=== PATIENT | male | born 1955 | race Two or more races ===

== ENCOUNTER → 2022-05-03 | Outpatient (CLI) | payer OTHER | END | disposition home or self-care (01) | LOC: LAB 07:59 | PROVIDERS: ATTEND Internal Medicine | DX: I10 Essential (primary) hypertension (principal) | CPT/HCPCS: 82270 ==

== ENCOUNTER → 2023-03-09 | Outpatient (CLI) | payer OTHER ==
[2023-03-09 07:04] LABS: Basophils # (auto) 0 10 ^3/uL (0-0.2); Basophils % (auto) 0.5 % (0.0-2.0); Eosinophils # (auto) 0.1 10 ^3/uL (0-0.8); Eosinophils % (auto) 1.1 % (0.0-7.0); Hematocrit 41.4 % (41.0-53.0); Hemoglobin 14.2 g/dL (13.5-17.5); Lymphocytes # (auto) 1.5 10 ^3/uL (0.4-5.4); Lymphocytes % (auto) 21.4 % (10.0-50.0); Mean Corpuscular Hemoglobin 31.8 pg (28.0-32.0); Mean Corpuscular Hgb Conc. 34.4 g/dL (32.0-36.0); Mean Corpuscular Volume 92.4 fL (80.0-100.0); Monocytes # (auto) 0.5 10 ^3/uL (0-1.3); Monocytes % (auto) 7.4 % (0.0-12.0); Neutrophils # (auto) 4.8 10 ^3/uL (1.6-8.6); Neutrophils % (auto) 69.6 % (37.0-80.0); Nucleated Red Blood Cells % 0.1 %; Red Blood Cells 4.48 10^6/uL (4.5-5.90); White Blood Cell 6.9 10^3/uL (4.4-10.8)
[2023-03-09 07:39] LABS: Albumin 3.6 g/dL (3.4-5.0); Calcium 8.7 mg/dL (8.5-10.1); Potassium 4.7 mmol/L (3.5-5.1)
[2023-03-09 07:44] LABS: BUN/Creatinine Ratio 20.2 (10.0-20.0); Bilirubin, Total 0.8 mg/dL (0.2-1.0); Total Protein 6.8 g/dL (6.4-8.2)
== END | disposition home or self-care (01) ==
LOC: LAB 06:22
PROVIDERS: ATTEND Internal Medicine
DX: N40.0 Benign prostatic hyperplasia without lower urinary tract symptoms (principal); E78.5 Hyperlipidemia, unspecified
CPT/HCPCS: 36415; 80053; 80061; 84153; 84443; 85025

== ENCOUNTER → 2023-05-31 | Outpatient (CLI) | payer OTHER ==
[2023-05-31 11:49] LABS: Urine Bacteria NONE SEEN /hpf (None Seen); Urine Blood Negative /uL (Negative); Urine Clarity Clear (Clear); Urine Color Yellow (Yellow); Urine Protein, UAD Negative (Negative); Urine Urobilinogen Normal (Negative); Urine WBC <1 /hpf (0 - 3); Urine pH 6.5 (5.0-8.0)
== END | disposition home or self-care (01) ==
LOC: LAB 10:50
PROVIDERS: ATTEND Internal Medicine
DX: N18.2 Chronic kidney disease, stage 2 (mild) (principal); E78.5 Hyperlipidemia, unspecified
CPT/HCPCS: 36415; 81001; 83036

== ENCOUNTER 2023-08-10 07:07 | Inpatient (IN) | payer OTHER ==
[2023-08-05 09:41] LABS: Urine WBC None Seen /hpf (0 - 3)
[2023-08-05 09:56] LABS: Basophils # (auto) 0 10 ^3/uL (0-0.2); Basophils % (auto) 0.6 % (0.0-2.0); Eosinophils # (auto) 0.1 10 ^3/uL (0-0.8); Eosinophils % (auto) 2.1 % (0.0-7.0); Hematocrit 45.2 % (41.0-53.0); Hemoglobin 15.1 g/dL (13.5-17.5); Lymphocytes # (auto) 1.8 10 ^3/uL (0.4-5.4); Lymphocytes % (auto) 27.3 % (10.0-50.0); Mean Corpuscular Hemoglobin 30.9 pg (28.0-32.0); Mean Corpuscular Hgb Conc. 33.4 g/dL (32.0-36.0); Mean Corpuscular Volume 92.6 fL (80.0-100.0); Monocytes # (auto) 0.7 10 ^3/uL (0-1.3); Monocytes % (auto) 9.7 % (0.0-12.0); Neutrophils % (auto) 60.3 % (37.0-80.0); Nucleated Red Blood Cells % 0.1 %; Red Blood Cells 4.88 10^6/uL (4.5-5.90); Red Cell Distribution Width 13.3 % (11.8-14.3); White Blood Cell 6.7 10^3/uL (4.4-10.8)
[2023-08-05 10:10] LABS: Urine Bacteria NONE SEEN /hpf (None Seen); Urine Blood Negative /uL (Negative); Urine Clarity Clear (Clear); Urine Color Colorless (Yellow); Urine Protein, UAD Negative (Negative); Urine Specific Gravity 1.007 (1.001-1.035); Urine Urobilinogen Normal (Negative); Urine pH 6.5 (5.0-8.0)
[2023-08-05 10:12] LABS: INR 1.01 (0.9-1.15); Partial Thromboplastin Time 25.4 SEC (24.5-34.5); Prothrombin Time 10.6 sec (9.3-11.8)
[2023-08-05 10:52] LABS: Alanine Aminotransferase 42 U/L (7-40); Albumin 4.4 g/dL (3.2-4.8); Alkaline Phosphatase 98 U/L (46-116); Anion Gap 6 (5-15); Aspartate Aminotransferase 29 U/L (13-40); BUN/Creatinine Ratio 12.6 (10.0-20.0); Bilirubin, Total 0.8 mg/dL (0.2-1.0); Blood Urea Nitrogen 14 mg/dL (9-23); Calcium 9.6 mg/dL (8.5-10.1); Carbon Dioxide 30 mmol/L (20-30); Chloride 104 mmol/L (98-107); Glucose 102 mg/dL (74-106); Potassium 4.5 mmol/L (3.5-5.1); Sodium 140 mmol/L (136-145); Total Protein 7.1 g/dL (5.7-8.2)
[~2023-08-10] VITALS: Ht 177.8 cm; Wt 94.9 kg
[2023-08-10] VITALS (7 sets, daily range): BP systolic 128–140; BP diastolic 57–72; PULSE 48–83; RESP 11–21; TEMP 97.9–98.4; O2SAT 95–97
[~2023-08-10 07:07] MED LIST: MELO-335 PO
[2023-08-10] MEDS ORDERED: ceFAZolin 1GM/50ML 100 ML IV ONE (07:41)
[2023-08-10] MEDS ORDERED: LIDOCAINE W/ EPINEPHRINE 2% INJ 20ML VIAL ONE (08:13)
[2023-08-10] MEDS ORDERED: BUPIVACAINE HCL 50 ML ONE (08:13)
[2023-08-10] MEDS ORDERED: METOCLOPRAMIDE HCL 5MG/ml INJ 2ml VIAL IV PRN (08:15)
[2023-08-10] MEDS ORDERED: ONDANSETRON HCL 4 MG/2 ML VIAL IV PRN ×2 (08:15→09:45)
[2023-08-10] MEDS ORDERED: HYDROmorphone HCL 2 MG/ML VL/or syr IV PRN ×3 (08:15→11:00)
[2023-08-10] MEDS ORDERED: MEPERIDINE HCL (25 MG/ML) 1ML VIAL IV PRN (08:15)
[2023-08-10] MEDS ORDERED: SUCCINYLCHOLINE CHLORIDE 20 MG/ML 10ML VIAL IV ONE (08:18)
[2023-08-10] MEDS ORDERED: fentaNYL CITRATE 100 MCG/2 ML VL ONE (08:21)
[2023-08-10] MEDS ORDERED: ROCURONIUM 10MG/ML 10ML VIAL IV ONE (08:40)
[2023-08-10] MEDS ORDERED: PROPOFOL 10 MG/ML 20 ML IV ONE (08:40)
[2023-08-10] MEDS ORDERED: ONDANSETRON HCL 4 MG/2 ML VIAL ONE (08:42)
[2023-08-10] MEDS ORDERED: DexAMETHasone SOD PHOS 10MG/1ML VIAL INJ ONE (08:42)
[2023-08-10] MEDS ORDERED: SUGAMMADEX 200mg/2ml Vial (100MG/ML) IV ONE (09:27)
[2023-08-10] MEDS ORDERED: MEPERIDINE HCL (25 MG/ML) 1ML VIAL ONE (09:28)
[2023-08-10] MEDS: PANTOPRAZOLE 40 MG/10 ML VIAL INJ IV SCH (10:50)
[2023-08-10] MEDS: D5W/SOD CHL 0.45%/KCL 20MEQ 1,000 ML IV SCH ×2 (11:40→18:00)
[2023-08-10] MEDS: ceFAZolin 1GM/50ML 50 ML IV SCH ×2 (14:18→22:18)
[2023-08-10] MEDS: metroNIDAZOLE 500MG/100ML 100 ML IV SCH ×2 (14:57→22:18)
[2023-08-11] MEDS: D5W/SOD CHL 0.45%/KCL 20MEQ 1,000 ML IV SCH ×2 (02:25→11:38)
[2023-08-11 05:00] VITALS: BP 123/62; PULSE 70; RESP 20; TEMP 98.7; O2SAT 98
[2023-08-11] MEDS: metroNIDAZOLE 500MG/100ML 100 ML IV SCH ×2 (05:16→14:00)
[2023-08-11] MEDS: ceFAZolin 1GM/50ML 50 ML IV SCH ×2 (05:16→12:48)
[2023-08-11 06:28] LABS: Anion Gap 6 (5-15); Carbon Dioxide 29 mmol/L (20-30); Chloride 104 mmol/L (98-107); Sodium 139 mmol/L (136-145)
[2023-08-11 06:29] LABS: Calcium 9.1 mg/dL (8.7-10.4)
[2023-08-11 06:34] LABS: BUN/Creatinine Ratio 10.2 (10.0-20.0); Blood Urea Nitrogen 11 mg/dL (9-23); Glucose 109 mg/dL (74-106)
[2023-08-11 06:40] LABS: Basophils # (auto) 0 10 ^3/uL (0-0.2); Basophils % (auto) 0.1 % (0.0-2.0); Eosinophils # (auto) 0 10 ^3/uL (0-0.8); Hematocrit 40.8 % (41.0-53.0); Hemoglobin 13.7 g/dL (13.5-17.5); Lymphocytes # (auto) 1.8 10 ^3/uL (0.4-5.4); Lymphocytes % (auto) 11.8 % (10.0-50.0); Mean Corpuscular Hgb Conc. 33.5 g/dL (32.0-36.0); Mean Corpuscular Volume 92.3 fL (80.0-100.0); Monocytes # (auto) 1.4 10 ^3/uL (0-1.3); Monocytes % (auto) 9.6 % (0.0-12.0); Neutrophils # (auto) 11.7 10 ^3/uL (1.6-8.6); Neutrophils % (auto) 78.5 % (37.0-80.0); Nucleated Red Blood Cells % 0.1 %; Red Blood Cells 4.42 10^6/uL (4.5-5.90); Red Cell Distribution Width 13.7 % (11.8-14.3); White Blood Cell 14.9 10^3/uL (4.4-10.8)
[2023-08-11 08:00] VITALS: BP 123/62; PULSE 65; PULSE 70; RESP 18; RESP 20; TEMP 98.7; O2SAT 98
[2023-08-11 09:00] VITALS: BP 133/60; PULSE 55; RESP 19; TEMP 97.9; O2SAT 99
[2023-08-11] MEDS: PANTOPRAZOLE 40 MG/10 ML VIAL INJ IV SCH (11:38)
[2023-08-11 13:00] VITALS: BP 126/64; PULSE 61; RESP 18; TEMP 97.3; O2SAT 100
[2023-08-11] MEDS ORDERED: CEPH500T PO (13:02)
[2023-08-11] MEDS ORDERED: LACT10SO3 PO (13:02)
[2023-08-11] MEDS ORDERED: TRAM50TA2 PO (13:02)
[2023-08-11 14:34] VITALS: BP 123/62; PULSE 70; RESP 18; TEMP 36.3; O2SAT 98
== END 2023-08-11 16:00 | disposition home or self-care (01) | DRG 352 ==
LOC: SUR 07:07 → OVERFLOW 10:06 → WEST WING 11:42
PROVIDERS: ADMIT Internal Medicine; ATTEND Internal Medicine
PROC: 0YQ50ZZ Repair Right Inguinal Region, Open Approach (ICD-10-PCS; principal; 2023-08-10 08:32)
DX: K40.90 Unilateral inguinal hernia, without obstruction or gangrene, not specified as recurrent (principal); K59.00 Constipation, unspecified
CPT/HCPCS: 36415; 80048; 80053; 81001; 85025; 85610; 85730; 86850; 86900; 86901; C1781; C9113; G0378; J0330; J0690; J1100; J2405; J2704; J3490

== ENCOUNTER → 2023-10-14 | Day surgery (SDC) | payer OTHER ==
[2023-10-07 11:07] LABS: Basophils # (auto) 0.1 10 ^3/uL (0-0.2); Basophils % (auto) 0.8 % (0.0-2.0); Eosinophils # (auto) 0.2 10 ^3/uL (0-0.8); Eosinophils % (auto) 2.2 % (0.0-7.0); Hemoglobin 14.9 g/dL (13.5-17.5); Lymphocytes % (auto) 28.2 % (10.0-50.0); Mean Corpuscular Hemoglobin 31.1 pg (28.0-32.0); Mean Corpuscular Volume 91.6 fL (80.0-100.0); Monocytes # (auto) 0.6 10 ^3/uL (0-1.3); Monocytes % (auto) 8.6 % (0.0-12.0); Neutrophils # (auto) 4.4 10 ^3/uL (1.6-8.6); Neutrophils % (auto) 60.2 % (37.0-80.0); Nucleated Red Blood Cells % 0.1 %; Red Cell Distribution Width 13.3 % (11.8-14.3); White Blood Cell 7.2 10^3/uL (4.4-10.8)
[2023-10-07 11:23] LABS: Alanine Aminotransferase 36 U/L (7-40); Albumin 4.2 g/dL (3.2-4.8); Alkaline Phosphatase 98 U/L (46-116); Anion Gap 5 (5-15); Aspartate Aminotransferase 24 U/L (13-40); BUN/Creatinine Ratio 14.3 (10.0-20.0); Bilirubin, Total 0.5 mg/dL (0.2-1.0); Blood Urea Nitrogen 16 mg/dL (9-23); Calcium 9.4 mg/dL (8.5-10.1); Carbon Dioxide 27 mmol/L (20-30); Chloride 107 mmol/L (98-107); Glucose 96 mg/dL (74-106); Sodium 139 mmol/L (136-145); Total Protein 6.5 g/dL (5.7-8.2)
[2023-10-07 11:29] LABS: INR 0.98 (0.9-1.15); Partial Thromboplastin Time 25.5 SEC (24.5-34.5); Prothrombin Time 10.3 sec (9.3-11.8)
[~2023-10-14] VITALS: Ht 177.8 cm; Wt 93.9 kg
[~2023-10-14] MED LIST changes: +CEPH500T PO; +LACT10SO3 PO; +LIDOCAINE 2% (LOCAL ANESTH.) PF 5ml SDV ONE; +MIDAZOLAM HCL 5 MG/ML-1ML VIAL ONE; +PROPOFOL 10 MG/ML 20 ML IV ONE; +SODIUM CHLORIDE LOCK 10 ML ONE; +TRAM50TA2 PO; +diphenhdrAMINE HCL 50 MG/1 ML VL ONE; +fentaNYL CITRATE 100 MCG/2 ML VL ONE
[2023-10-14 13:55] VITALS: PULSE 72; RESP 11; O2SAT 98
[2023-10-14 14:25] VITALS: BP 128/71; PULSE 66; RESP 13; O2SAT 98
== END | disposition home or self-care (01) ==
LOC: GI 10:48
PROVIDERS: ATTEND Internal Medicine Gastroenterology
DX: Z12.11 Encounter for screening for malignant neoplasm of colon (principal); K57.30 Diverticulosis of large intestine without perforation or abscess without bleeding; K58.9 Irritable bowel syndrome, unspecified; K63.89 Other specified diseases of intestine; K64.8 Other hemorrhoids; K55.20 Angiodysplasia of colon without hemorrhage
CPT/HCPCS: 36415; 45378; 80053; 85025; 85610; 85730; J2001; J2704; J7030; J2250

== ENCOUNTER → 2023-12-02 | Outpatient (CLI) | payer OTHER ==
[~2023-12-02] MED LIST changes: -LIDOCAINE 2% (LOCAL ANESTH.) PF 5ml SDV ONE; -MIDAZOLAM HCL 5 MG/ML-1ML VIAL ONE; -PROPOFOL 10 MG/ML 20 ML IV ONE; -SODIUM CHLORIDE LOCK 10 ML ONE; -diphenhdrAMINE HCL 50 MG/1 ML VL ONE; -fentaNYL CITRATE 100 MCG/2 ML VL ONE
[2023-12-02 06:28] LABS: Basophils # (auto) 0 10 ^3/uL (0-0.2); Basophils % (auto) 0.7 % (0.0-2.0); Eosinophils # (auto) 0.3 10 ^3/uL (0-0.8); Eosinophils % (auto) 4.9 % (0.0-7.0); Hematocrit 42.1 % (41.0-53.0); Hemoglobin 14.1 g/dL (13.5-17.5); Lymphocytes # (auto) 1.6 10 ^3/uL (0.4-5.4); Lymphocytes % (auto) 24.4 % (10.0-50.0); Mean Corpuscular Hemoglobin 31.4 pg (28.0-32.0); Mean Corpuscular Hgb Conc. 33.4 g/dL (32.0-36.0); Monocytes # (auto) 0.7 10 ^3/uL (0-1.3); Monocytes % (auto) 10.4 % (0.0-12.0); Neutrophils # (auto) 3.9 10 ^3/uL (1.6-8.6); Neutrophils % (auto) 59.6 % (37.0-80.0); Red Blood Cells 4.48 10^6/uL (4.5-5.90); Red Cell Distribution Width 14.2 % (11.8-14.3); White Blood Cell 6.5 10^3/uL (4.4-10.8)
[2023-12-02 07:02] LABS: Urine Bacteria NONE SEEN /hpf (None Seen); Urine Blood Negative /uL (Negative); Urine Clarity Clear (Clear); Urine Color Yellow (Yellow); Urine Protein, UAD Negative (Negative); Urine Specific Gravity 1.016 (1.001-1.035); Urine Urobilinogen Normal (Negative); Urine WBC <1 /hpf (0 - 3); Urine pH 6.5 (5.0-8.0)
[2023-12-02 07:40] LABS: Alanine Aminotransferase 39 U/L (7-40); Alkaline Phosphatase 107 U/L (46-116); Anion Gap 5 (5-15); Aspartate Aminotransferase 37 U/L (13-40); BUN/Creatinine Ratio 9.5 (10.0-20.0); Blood Urea Nitrogen 10 mg/dL (9-23); Calcium 9.4 mg/dL (8.5-10.1); Carbon Dioxide 30 mmol/L (20-30); Chloride 107 mmol/L (98-107); Glucose 108 mg/dL (74-106); LDL Cholesterol 127 mg/dL (< 100); Potassium 4.8 mmol/L (3.5-5.1); Sodium 142 mmol/L (136-145); Triglycerides 60 mg/dL (< 150)
[2023-12-02 07:41] LABS: Bilirubin, Total 0.6 mg/dL (0.2-1.0); Cholesterol 194 mg/dL (< 200); HDL Cholesterol 56 mg/dL (40-59)
== END | disposition home or self-care (01) ==
LOC: LAB 06:12
PROVIDERS: ATTEND Internal Medicine
DX: Z00.01 Encounter for general adult medical examination with abnormal findings (principal); E78.5 Hyperlipidemia, unspecified; N18.2 Chronic kidney disease, stage 2 (mild); E66.3 Overweight
CPT/HCPCS: 36415; 80053; 80061; 81001; 83036; 84439; 84443; 85025

== ENCOUNTER → 2024-10-19 | Outpatient (CLI) | payer OTHER ==
[~2024-10-19] MED LIST changes: -MELO-335 PO; +MELO15TA29 PO
[2024-10-19 08:53] LABS: Urine Bacteria None Seen /hpf (None Seen)
[2024-10-19 09:08] LABS: Urine Blood Negative /uL (Negative); Urine Clarity Clear (Clear); Urine Color Colorless (Yellow); Urine Protein, UAD Negative (Negative); Urine Specific Gravity 1.004 (1.001-1.035); Urine Squamous Epithelial Cell None Seen /hpf (<5); Urine Urobilinogen Normal (Negative); Urine WBC <1 /hpf (0 - 3)
[2024-10-19 09:14] LABS: Basophils # (auto) 0 10 ^3/uL (0-0.2); Basophils % (auto) 0.5 % (0.0-2.0); Eosinophils # (auto) 0.3 10 ^3/uL (0-0.8); Eosinophils % (auto) 3.5 % (0.0-7.0); Hematocrit 43.1 % (41.0-53.0); Hemoglobin 14.9 g/dL (13.5-17.5); Lymphocytes # (auto) 1.8 10 ^3/uL (0.4-5.4); Mean Corpuscular Hemoglobin 32.1 pg (28.0-32.0); Mean Corpuscular Hgb Conc. 34.6 g/dL (32.0-36.0); Mean Corpuscular Volume 92.6 fL (80.0-100.0); Monocytes # (auto) 0.8 10 ^3/uL (0-1.3); Monocytes % (auto) 10.7 % (0.0-12.0); Neutrophils # (auto) 4.7 10 ^3/uL (1.6-8.6); Neutrophils % (auto) 61.3 % (37.0-80.0); Platelet Count (auto) 249 10^3/uL (140-450); Red Blood Cells 4.66 10^6/uL (4.5-5.90); Red Cell Distribution Width 13.6 % (11.8-14.3); White Blood Cell 7.7 10^3/uL (4.4-10.8)
[2024-10-19 10:16] LABS: Alanine Aminotransferase 27 U/L (7-40); Albumin 4.1 g/dL (3.2-4.8); Alkaline Phosphatase 81 U/L (46-116); Anion Gap 4 (5-15); Aspartate Aminotransferase 25 U/L (13-40); Blood Urea Nitrogen 15 mg/dL (9-23); Chloride 104 mmol/L (98-107); Glucose 101 mg/dL (74-106); Potassium 5.1 mmol/L (3.5-5.1); Sodium 139 mmol/L (136-145); Triglycerides 71 mg/dL (< 150)
[2024-10-19 10:17] LABS: Bilirubin, Total 0.9 mg/dL (0.2-1.0); HDL Cholesterol 56 mg/dL (40-59); Total Protein 6.4 g/dL (5.7-8.2)
[2024-10-19 10:24] LABS: Carbon Dioxide 31 mmol/L (20-31); Cholesterol 208 mg/dL (< 200); LDL Cholesterol 141 mg/dL (< 100)
== END | disposition home or self-care (01) ==
LOC: LAB 08:40
PROVIDERS: ATTEND Internal Medicine
DX: Z00.01 Encounter for general adult medical examination with abnormal findings (principal); N18.2 Chronic kidney disease, stage 2 (mild); E78.5 Hyperlipidemia, unspecified; E66.3 Overweight
CPT/HCPCS: 36415; 80053; 80061; 81001; 83036; 84439; 84443; 85025

== ENCOUNTER → 2025-02-18 | Outpatient (CLI) | payer OTHER ==
[2025-02-18 07:18] LABS: Chloride 105 mmol/L (98-107); Sodium 140 mmol/L (136-145)
[2025-02-18 07:19] LABS: Anion Gap 6 (5-15); Carbon Dioxide 29 mmol/L (20-31)
[2025-02-18 07:20] LABS: Calcium 10.3 mg/dL (8.7-10.4)
[2025-02-18 07:24] LABS: Triglycerides 59 mg/dL (< 150)
[2025-02-18 07:25] LABS: Blood Urea Nitrogen 20 mg/dL (9-23)
[2025-02-18 07:26] LABS: HDL Cholesterol 56 mg/dL (40-59)
[2025-02-18 07:27] LABS: Cholesterol 234 mg/dL (< 200); Glucose 111 mg/dL (74-106); LDL Cholesterol 171 mg/dL (< 100); Potassium 5.1 mmol/L (3.5-5.1)
== END | disposition home or self-care (01) ==
LOC: LAB 06:17
PROVIDERS: ATTEND Internal Medicine
DX: N18.2 Chronic kidney disease, stage 2 (mild) (principal); E78.5 Hyperlipidemia, unspecified
CPT/HCPCS: 36415; 80048; 80061

== ENCOUNTER → 2025-06-04 | Day surgery (SDC) | payer OTHER ==
[2025-06-03 13:57] LABS: Hematocrit 42.3 % (41.0-53.0); Hemoglobin 14.2 g/dL (13.5-17.5); Mean Corpuscular Hemoglobin 31.1 pg (28.0-32.0); Mean Corpuscular Volume 92.5 fL (80.0-100.0); Nucleated Red Blood Cells % 0.1 %
[2025-06-03 14:12] LABS: INR 1.01 (0.9-1.15); Partial Thromboplastin Time 24.5 SEC (24.5-34.5); Prothrombin Time 10.7 sec (9.3-11.8)
[2025-06-03 14:22] LABS: Alanine Aminotransferase 41 U/L (7-40); Albumin 4.4 g/dL (3.2-4.8); Alkaline Phosphatase 117 U/L (46-116); Anion Gap 7 (5-15); BUN/Creatinine Ratio 18.3 (10.0-20.0); Bilirubin, Total 0.4 mg/dL (0.2-1.0); Blood Urea Nitrogen 20 mg/dL (9-23); Calcium 9.2 mg/dL (8.7-10.4); Carbon Dioxide 30 mmol/L (20-31); Chloride 104 mmol/L (98-107); Glucose 101 mg/dL (74-106); Potassium 4.3 mmol/L (3.5-5.1); Sodium 141 mmol/L (136-145); Total Protein 6.5 g/dL (5.7-8.2)
[2025-06-03 14:27] LABS: Urine Protein, UAD Negative (Negative)
[~2025-06-04] VITALS: Ht 177.8 cm; Wt 88.0 kg
[~2025-06-04] MED LIST changes: +ASCO500T11 PO; -CEPH500T PO; +CHOL100055 PO; +COEN400C8 OR; +DOCU-94 PO; +GLUC1TAB22 PO; +HYDROmorphone HCL 2 MG/ML VL/or syr IV PRN; +IBUP200C53 PO; -LACT10SO3 PO; +MIDAZOLAM HCL 2MG/2ML 2ml VIAL (1mg/ml) IV PRN; +MIDAZOLAM HCL 2MG/2ML 2ml VIAL (1mg/ml) ONE; +MORPHINE SULFATE 4 MG/ML SYR/VIAL IV PRN; +OMEG-20 PO; +ONDANSETRON HCL 4 MG/2 ML VIAL IV ONE; +PROPOFOL 10 MG/ML 20 ML IV ONE; +ROSU20TA14 PO; +TURM500C3 OR; +ZINC50TA7 PO; +[UNRECOGNIZED DRUG - CODE] OR; +[UNRECOGNIZED DRUG - CODE] PO; +fentaNYL CITRATE 100 MCG/2 ML VL ONE; +hydrALAZINE HCL 20 MG/ML VL IV PRN
[2025-06-04] MEDS: CIPROFLOXACIN 400MG/200ML 200 ML IV ONE (11:03)
--- NOTE | 2025-06-04 11:36 | DVHNC2 ---
Procedure - OPERATIVE REPORT Pre-op. Diagnosis: BPH with Obstruction Post-op. Diagnosis: Same as pre-op diagnosis Operation: Urolift - Prostate Implant Anesthesia: General Indications: Patient suffers from obstructive voiding dysfunction. Treatment options were discussed including ongoing therapy with pharmaceutical such as alpha blocking agents (Flomax/UroXatral/Rapaflow), or Prostate shrinking agents (proscar/Avodart); In-office prostate therapies (TUMT/Indigo Laser/TUNA); or Outpatient procedures such as Green light laser photovaporization/Enucleation/TURP) as well urolift. Corresponding advantages and disadvantages were also discussed. Questions were addressed. Complication include but nt limited to infection, bleeding, damage to the surrounding structures, ejaculatory dysfunction, erectile dysfunction, need for secondary procedures were discussed. Informed consent was obtained. Details of Procedure: Patient was brought to the operating room. After administration of anesthesia, he was placed in the lithotomy position. The area of genitalia was prepped and draped in standard surgical and sterile fashion. The 20 F access sheath was introduced into the bladder under direct vision. Bladder was emptied and the Urolift device was introduced. Four implants were permanently placed at the 10 a& 2 O'clock positions near the bladder neck and apical tissue to lift the kissing lateral lobes out of the way and to create a channel in the prostatic urethra and the urethral bladder neck opening. The implants were delivered through a needle that comes out of the Urolift delivery device and into the prostate. Patient tolerated the procedure well. He was awaken and taken to RR in stable condition. All instrument counts were correct at the end of the procedure. Specimens: None Complications: None JOSE GREENE MD Jun 04, 2025 11:36
--- NOTE | 2025-06-04 11:37 | DVHDS2 ---
New Physician D'charge PN Admitting Diagnosis Admitting Diagnosis BPH Discharge Diagnosis Same Operations or Procedures UroLift prostate implants Reason(s) For Hospitalization Surgery Treatment Plan Discharge Condition of Discharge Good Disposition Home Discharge Instructions Diet: Regular Activity: Light activity Activity comment: As tolerated Medications: Given Follow Up Care Follow Up/Referral: Follow up in two weeks Discharge Statement: "Patient was advised to return to the ER or call 911 if any headaches, dizziness, shortness of breath, chest pain, abdominal pain, bleeding, fevers, or worsening of medical condition. Patient was counseled about treatment plan, medications, possible side effects, patientverbalized understanding. All questions were answered to the best of my ability. This discharge took greater then 30 minutes in planning, reviewing documentation, counseling the patient, and discussing with other team members." JOSE GREENE MD Jun 04, 2025 11:37
[2025-06-04 11:40] VITALS: PULSE 58; RESP 10; TEMP 97.8; O2SAT 100
[2025-06-04 12:10] VITALS: BP 91/65; PULSE 53; RESP 17; O2SAT 98
== END | disposition home or self-care (01) ==
LOC: SUR 08:29
PROVIDERS: ATTEND Urology
DX: N40.1 Benign prostatic hyperplasia with lower urinary tract symptoms (principal); N13.8 Other obstructive and reflux uropathy; G89.29 Other chronic pain; E78.00 Pure hypercholesterolemia, unspecified; Z98.890 Other specified postprocedural states; Z98.1 Arthrodesis status
CPT/HCPCS: 36415; 52441; 52442; 80053; 81001; 85025; 85610; 85730; 87086; C1769; J0744; J1100; J2250; J2704; J3010; J7030; L8699

== ENCOUNTER 2025-06-10 08:40 | Outpatient (CLI) | payer OTHER ==
[~2025-06-10] VITALS: Ht 177.8 cm; Wt 89.4 kg
[~2025-06-10 08:40] MED LIST changes: -HYDROmorphone HCL 2 MG/ML VL/or syr IV PRN; -MIDAZOLAM HCL 2MG/2ML 2ml VIAL (1mg/ml) IV PRN; -MIDAZOLAM HCL 2MG/2ML 2ml VIAL (1mg/ml) ONE; -MORPHINE SULFATE 4 MG/ML SYR/VIAL IV PRN; -ONDANSETRON HCL 4 MG/2 ML VIAL IV ONE; -PROPOFOL 10 MG/ML 20 ML IV ONE; -fentaNYL CITRATE 100 MCG/2 ML VL ONE; -hydrALAZINE HCL 20 MG/ML VL IV PRN
[2025-06-10] MEDS: REGADENOSON 0.4 MG/5 ML SYRG IV ONE ×2 (09:48→10:59)
--- NOTE | 2025-06-11 11:52 | DVHSR ---
APPROVED REPORT Exam: Nuclear Stress Test BMI: 0 Stress Test Details Stress Test: Pharmacologic stress testing performed using 0.4 mg of regadenoson per 5 mL given IV ov er 10 seconds. HR Resting HR: 49 bpmMax Heart Rate (APMHR): 150.100718 bpm Max HR Achieved: 88 bpmTarget HR (85% APMHR): 127.317457 bpm % of APMHR: 58.67 Recovery HR: 57 bpm BP Resting BP: 133/70 mmHg Recovery BP: 134/62 mmHg ECG Resting ECG: Sinus Bradycardia Clinical Reason for Termination: Completed protocol Nurse Comments Recieved pt. from [employer]. A/Ox4 on RA. 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 PIV flushes well. Re viewed POC. Pt. verbalized understanding of procedure including risks and side effects, agrees for st ress testing. Lexiscan stress test performed per protocol. [employer] tech administered Cardiolite. Pt. tolerated well . Pt. stable, no change on exam. VS returned to baseline. Transferred to [employer] via wheelchair w/ te ch. Stress ECG Conclusion lvef 60% inferior wall defect fixed no major ischemia noted NM EXAM: Myocardial Perfusion REST/STRESS Imaging Protocol: Rest Tc-99m/Stress Tc-99m 1 day Resting Data Rest SPECT myocardial perfusion imaging was performed in supine position 60 minutes following the int ravenous injection of 10.9 mCi of Tc-99m Sestamibi. Time of rest injection: 09:50 Date: 06/10/2025 Time of rest imagin:50 Date: 06/10/2025 Administration Route: IV Administration Site: Left AC Pharmacologic Stress Pharmacologic stress test was performed by injecting Regadenoson 0.4 mg IV push followed by the intra venous injection of 29.4 mCi of Tc-99m Sestamibi. Time of stress injection: 11:00 Date: 06/10/2025 Time of stress imagin:00 Date: 06/10/2025 Administration Route: IV Administration Site: Left AC Gated Stress SPECT was performed 60 minutes after stress injection. The images were gated to evaluate regional wall motion and calculate left ventricular ejection fracti on. Stress only was performed in the Supine position. Nuclear Conclusion Nuclear Findings: negative for ischemia lvef 60% inferior wall defect fixed no major ischemia noted
== END 2025-06-10 17:00 | disposition home or self-care (01) ==
LOC: XYW 08:40
PROVIDERS: ATTEND Internal Medicine
DX: Z01.810 Encounter for preprocedural cardiovascular examination (principal); R00.1 Bradycardia, unspecified; M54.50 Low back pain, unspecified
CPT/HCPCS: 78452; 93017; A9500; J2785

== ENCOUNTER 2025-07-18 08:32 | Inpatient (IN) | payer OTHER ==
[2025-07-16 07:30] LABS: Urine Protein, UAD Negative (Negative)
[2025-07-16 07:35] LABS: Hematocrit 41.4 % (41.0-53.0); Hemoglobin 14.4 g/dL (13.5-17.5); Mean Corpuscular Hemoglobin 31.6 pg (28.0-32.0); Mean Corpuscular Volume 90.9 fL (80.0-100.0); Nucleated Red Blood Cells % 0.1 %
[2025-07-16 07:40] LABS: INR 1.03 (0.9-1.15); Partial Thromboplastin Time 25.3 SEC (24.5-34.5); Prothrombin Time 10.9 sec (9.3-11.8)
[2025-07-16 07:45] LABS: Anion Gap 9 (5-15); BUN/Creatinine Ratio 21.8 (10.0-20.0); Calcium 9.2 mg/dL (8.7-10.4); Carbon Dioxide 28 mmol/L (20-31); Chloride 103 mmol/L (98-107); Glucose 88 mg/dL (74-106); Potassium 4.5 mmol/L (3.5-5.1); Sodium 140 mmol/L (136-145); Total Protein 6.5 g/dL (5.7-8.2)
[2025-07-16 07:47] LABS: Alanine Aminotransferase 43 U/L (7-40); Albumin 4.1 g/dL (3.2-4.8); Alkaline Phosphatase 117 U/L (46-116); Bilirubin, Total 0.8 mg/dL (0.2-1.0); Blood Urea Nitrogen 24 mg/dL (9-23)
[2025-07-18] VITALS (7 sets, daily range): BP systolic 128–129; BP diastolic 71–81; PULSE 56–109; RESP 12–19; TEMP 97.9–98.1; O2SAT 97–100
[~2025-07-18] VITALS: Ht 182.9 cm; Wt 89.1 kg
--- NOTE | 2025-07-18 09:10 | DVHHP2 ---
"Admitting Diagnosis: lumbar spondylolisthesis and lumbar spinal stenosis causing incapacitating low back pain and radiculopathy History of Present Illness Home Meds Active Scripts Tramadol Hcl (Tramadol Hcl) 50 Mg Tab, 50 MG PO TIDP PRN for 7 Days, #21 TAB Prov:JIMMIE CASTANEDA MD 08/11/23 Reported Medications Cholecalciferol (D3) 1,000 Unit Tab, 1000 UNIT PO, TAB 06/03/25 [place]-3 Fatty Acids (FISH OIL) 1,000 Mg Cap, 1000 MG PO BID, CAP 06/03/25 Zinc Gluconate (Zinc) 50 Mg Tab, 50 MG PO, TAB 06/03/25 Multiple Vitamin (Daily Vitamins) Tab, 1 OR, TAB 06/03/25 Glucosamine Hydrochloride (Glucosamine) 1,500 Mg Tab, 1500 MG PO BID, TAB 06/03/25 Ascorbic Acid (VITAMIN C TABLET) 500 Mg Tb, 2 TAB PO DAILY, #30 TAB 06/03/25 Curcuma Longa (Turmeric) Extra (TURMERIC) 500 Mg Cap, 1000 MG OR BID, CAP 06/03/25 Docusate Sodium (Colace) 100 Mg Cap, 1 CAP PO TID, #60 CAP 06/03/25 Psyllium (Daily Fiber) 400 Mg Cap, 700 MG PO, CAP 06/03/25 Coenzyme Q10 (Ubidecarenone) (COQ-10) 400 Mg Cap, 400 MG OR DAILY, CAP 06/03/25 Rosuvastatin Calcium (Crestor) 20 Mg Tab, 1 TAB PO DAILY, #90 TAB 3 Refills 06/03/25 Ibuprofen (EQL IBUPROFEN) 200 Mg Cap, 600 MG PO TID PRN for prn, CAP 06/03/25 Meloxicam (Meloxicam) 15 Mg Tab, 15 MG PO PRN, TAB 08/05/23 Timing/Duration of Back Pain: Getting worse Quality of Back Pain: Aching, Burning, Cramping Back Pain Location: Lumbar spine Back Pain Radiation: Thigh area, Feet, Lower legs Method of Injury/Prior Factors: Unknown Modifying Factors for Back [place]: None Associated Symptoms of Back Pa: Muscle spasms, Numbness in legs, Tingling in legs, Tingling in feet, Sensory loss, Motor loss Past Medical History Patient Family History: Cardiovascular disease G8 MOTHER Review of Systems Constitutional: No symptom reported Ears, Nose, & Throat: No symptom reported Eyes: No symptom reported Pulmonary/Respiratory: No symptom reported Cardiovascular: No symptom reported Gastrointestinal: No symptom reported Genitourinary: No symptom reported Musculoskeletal: Muscle pain, Muscle stiffness Skin: No symptom reported Psychiatric: No symptom reported Hemotologic/Lymphatic: No symptom reported H&P Exam General Appeara: Well developed, Well nourished, Normal Appearance Head Exam: Normal inspection Neck Exam: Normal inspection, Non-tender, Normal alignment Eye Exam: bilateral eye Normal inspection, bilateral eye PERRL, bilateral eye EOMI Ear Exam: bilateral ear Auricle normal, bilateral ear Canal normal, bilateral ear TM normal Nasal Exam: Normal inspection Mouth: Normal Inspection Pulmonary/Respiratory: Normal inspection, Normal breath sounds, Chest non- tender, Lungs clear Cardiovascular/Chest: Normal inspection, Regular rate, Normal Rhythm Abdominal Exam: Normal bowel sounds, Soft, No tenderness, No hepatospenomegaly, No masses Rectal Exam: Deferred Back Exam: Muscle spasm Pelvic Exam: Not done Male Genital Exam: Not done Shoulder Exam: Normal inspection, Non-tender, Normal ROM Elbow/Forearm Exam: Normal inspection, Non-tender, Normal ROM Wrist Exam: Normal inspection, Non-tender, Normal ROM Hand Exam: Normal inspection, Non-tender, Normal ROM Hip exam: Normal inspection, Non-tender, Normal range of motion Legs: bilateral leg non-tender, bilateral leg normal inspection, bilateral leg normal range of motion, bilateral leg no evidence of injury Knees: bilateral knee non-tender, bilateral knee normal inspection, bilateral knee normal range of motion, bilateral knee no evidence of injury Ankle Exam: bilateral ankle Normal inspection, bilateral ankle Non-tender, bilateral ankle Normal range of motion, bilateral ankle No evidence of injury Tendon/ Neuro: Motor deficit, Sensory deficit 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 hearing, Normal speech, PERRL Motor/Sensory: Weak motor strength RLE, Weak motor strength LLE Deep Tendon Ref: All intact Neuro/Mental St: Alert, Oriented Appearance: Appropriate appearance, Appropriate insight Eye contact/ Speech: Cooperative, Good eye contact, Normal speech Coordination/Gait: Normal finger->nose, Normal gait, Negative Romberg's sign, Abnormal gait Skin Exam: Normal inspection, Normal color, Warm/dry Lymphatic: Normal inspection Labs/Xrays Labs Test 07/16/25 06:29 Range/Units White Blood Count 8.1 4.4-10.8 10^3/uL Red Blood Count 4.55 4.5-5.90 10^6/uL Hemoglobin 14.4 13.5-17.5 g/dL Hematocrit 41.4 41.0-53.0 % Mean Corpuscular Volume 90.9 80.0-100.0 fL Mean Corpuscular Hemoglobin 31.6 28.0-32.0 pg Mean Corpuscular Hemoglobin Concent 34.8 32.0-36.0 g/dL Red Cell Distribution Width 13.3 11.8-14.3 % Platelet Count 206 140-450 10^3/uL Mean Platelet Volume 9.8 6.9-10.8 fL Neutrophils (%) (Auto) 66.4 37.0-80.0 % Lymphocytes (%) (Auto) 21.8 10.0-50.0 % Monocytes (%) (Auto) 9.2 0.0-12.0 % Eosinophils (%) (Auto) 2.1 0.0-7.0 % Basophils (%) (Auto) 0.5 0.0-2.0 % Neutrophils # (Auto) 5.4 1.6-8.6 10 ^3/uL Lymphocytes # (Auto) 1.8 0.4-5.4 10 ^3/uL Monocytes # (Auto) 0.7 0-1.3 10 ^3/uL Eosinophils # (Auto) 0.2 0-0.8 10 ^3/uL Basophils # (Auto) 0 0-0.2 10 ^3/uL Nucleated Red Blood Cells 0.1 % Prothrombin Time 10.9 9.3-11.8 sec Prothrombin Time INR 1.03 0.9-1.15 Activated Partial Thromboplast Time 25.3 24.5-34.5 SEC Urine Color Light-yellow Yellow Urine Clarity Clear Clear Urine pH 5.5 5.0-9.0 Urine Specific [place] 1.023 1.001-1.035 Urine Protein Negative Negative Urine Ketones Negative Negative Urine Blood Negative Negative /uL Urine Nitrite Negative Negative Urine Bilirubin Negative Negative Urine Urobilinogen Normal Negative mg/dL Urine Leukocyte Esterase Negative Negative /uL Urine RBC 1 0 - 3 /hpf Urine Microscopic WBC 1 0-3 /HPF Urine Squamous Epithelial Cells None seen <5 /hpf Urine Bacteria None seen None Seen /hpf Urine Mucus Few None Seen Urine Glucose Normal Normal mg/dL Sodium Level 140 136-145 mmol/L Potassium Level 4.5 3.5-5.1 mmol/L Chloride Level 103 98-107 mmol/L Carbon Dioxide Level 28 20-31 mmol/L Anion Gap 9 5-15 Blood Urea Nitrogen 24 H 9-23 mg/dL Creatinine 1.10 0.700-1.30 mg/dL Glomerular Filtration Rate Calc 72 >90 mL/min BUN/Creatinine Ratio 21.8 H 10.0-20.0 Serum Glucose 88 74-106 mg/dL Calcium Level 9.2 8.7-10.4 mg/dL Total Bilirubin 0.8 0.2-1.0 mg/dL Aspartate Amino Transferase (AST) 28 13-40 U/L Alanine Aminotransferase (ALT) 43 H 7-40 U/L Alkaline Phosphatase 117 H 46-116 U/L Total Protein 6.5 5.7-8.2 g/dL Albumin 4.1 3.2-4.8 g/dL CLINICAL INFORMATION: 69 years old, Male; RADICULOPATHY LUMBAR REGION. TECHNIQUE: Multisequence multiplanar MRI images of the lumbar spine were obtained without contrast. COMPARISON: Radiographs dated 10/25/2024. INTERPRETATION: Mild grade 1 anterolisthesis of L4 on L5. Small Schmorl's nodes of the superior and inferior endplates of T12 and L1. Vertebral body heights are otherwise maintained. Posterior elements are intact. No focal suspicious marrow signal abnormality. Visualized spinal cord and cauda equina are within normal limits. The conus medullaris is appropriate in signal at the L1 level. Paraspinal soft tissues are unremarkable. L1-L2: Disc desiccation. Mild disc bulge and congenital spinal canal narrowing contributes to mild to moderate spinal canal stenosis facet hypertrophy with mild bilateral neural foraminal stenoses. L2-L3: Disc desiccation with diffuse disc bulge and congenital spinal canal narrowing contributing to severe spinal canal stenosis with severe crowding of the cauda equina and effacement of the lateral recesses. Facet hypertrophy with moderate to severe bilateral neural foraminal stenoses. Mod erate left and small right facet joint effusions. L3-L4: Disc desiccation with diffuse disc bulge and congenital spinal canal na rrowing contributing to mild spinal canal stenosis and mild partial effacement of the lateral recesses. Facet hypertrophy with moderate bilateral neural foraminal stenoses, right greater than left. L4-L5: Disc desiccation with moderate disc space narrowing. There is uncovering of the disc due to the anterolisthesis. No significant spinal canal stenosis. Small annular fissure. Facet hypertrophy with severe left and moderate to severe right neural foraminal stenoses. L5-S1: Disc desiccation. No significant spinal canal stenosis. Facet hypertrophy with severe right and moderate left neural foraminal stenoses. Moderate bilateral facet joint effusions. IMPRESSION: 1. Degenerative disc disease and facet disease in the lumbar spine with associated spinal canal, subarticular, and neural foraminal stenoses as detailed above, including severe spinal canal stenosis at the L2-L3 level. [facility] [address] , [address] [place] [address] | Confidential information intended for patient chart only Page 2 of 2 2. Congenital spinal canal narrowing contributes to the spinal canal stenoses. 3. Grade 1 anterolisthesis of L4 on L5. 4. Additional findings as detailed above. Assessment/Plan Primary Diagnosis lumbar spinal stenosis and spondylolisthesis causing incapacitating low back pain and radiculopathy Plan admit for elective lumbar spine surgery Plan discussed with: Patient FAINA COLEMAN MD Jul 18, 2025 09:10"
[2025-07-18] MEDS ORDERED: fentaNYL CITRATE 5 ML ONE (09:20)
[2025-07-18] MEDS ORDERED: ONDANSETRON HCL 4 MG/2 ML VIAL ONE (09:20)
[2025-07-18] MEDS ORDERED: PROPOFOL 10 MG/ML 20 ML IV ONE ×3 (09:20→13:13)
[2025-07-18] MEDS ORDERED: fentaNYL CITRATE 100 MCG/2 ML VL ONE ×3 (09:20→12:55)
[2025-07-18] MEDS ORDERED: LIDOCAINE 2% TOPICAL JELLY 5 ML URJT TOP ONE (09:20)
[2025-07-18] MEDS ORDERED: MIDAZOLAM HCL 2MG/2ML 2ml VIAL (1mg/ml) ONE (09:20)
[2025-07-18] MEDS ORDERED: ROCURONIUM 10MG/ML 10ML VIAL IV ONE (09:20)
[2025-07-18] MEDS ORDERED: SODIUM CHLORIDE LOCK 50 ML ONE (09:20)
[2025-07-18] MEDS ORDERED: HYDROmorphone HCL 2 MG/ML VL/or syr ONE (09:20)
[2025-07-18] MEDS ORDERED: ETOMIDATE (2MG/ML) 20ML VIAL IV ONE (09:20)
[2025-07-18] MEDS ORDERED: LIDOCAINE 1% INJ PF 5ML AMP ONE (09:20)
[2025-07-18] MEDS: ceFAZolin 2 GM/D5W50ml 50 ML IV ONE (09:45)
[2025-07-18] MEDS ORDERED: NITROGLYCERIN 0.4 MG SL TAB SL PRN (14:00)
[2025-07-18] MEDS ORDERED: ONDANSETRON HCL 4 MG/2 ML VIAL IV PRN (14:00)
[2025-07-18] MEDS ORDERED: MORPHINE SULFATE INJ 2 MG/ml SYRG IV PRN ×3 (14:00→14:15)
[2025-07-18] MEDS ORDERED: ceFAZolin 1GM/50ML 50 ML IV SCH (14:00)
--- NOTE | 2025-07-18 14:02 | DVHOP2 ---
Operative Report - 2 Report Details Date: 07/18/25 Preop Diagnosis: 1. 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 spondylolisthesis at Lumbar 4/5 3. severe neurogenic claudication due to 1 and 2 Postop Diagnosis: same Surgeon: Jas Newman MD [place] Turner: Pura Diaz NP Anesthesiologist: filomena Anesthesia: General Consent: The patient was informed of the risks and benefits of the procedure. These include but are not limited to complications of anesthesia, postoperative infection, incomplete relief of symptoms, recurrence of symptoms, damage to blood vessels, nerves and tendons, deep venous thrombosis, pulmonary embolism and possible need for repeat surgery in the future. Name of Procedure Performed see below Procedure Details Procedure Details: Pre-op Diagnosis: 1. l.umbar spinal stenosis at L3/4,4/5 and lumbar 5/sacral 1 with severe central canal narrowing the setting of a congenitally narrrow canal. 2.L4/5 spondylolisthesis Post-op Diagnosis: same as pre op Procedure: Lumbar 5 laminectomy with Lumbar 5 foraminotomies and facetectomies to decompress central canal and Lumbar 5 nerve roots Lumbar 4 laminectomy with Lumbar 4 foraminotomies and facetectomies to decompress central canal and Lumbar 4 nerve roots Lumbar 3 laminectomy with Lumbar 3 foraminotomies and facetectomies to decompress central canal and Lumbar 3 nerve roots Lumbar 3 to 4 posterior spinal interbody fusion with PEEK cage Lumbar 4 to 5 posterior spinal interbody fusion with PEEK cage Lumbar 3 to 5 posterior spinal intertransverse fusion with bone graft Lumbar 3 to 5 posterior spinal instrumentation with pedicle screws Local Bone Autograft For Fusion Allograft Bone to augment Fusion Use of Demineralized Bone Matrix to Augment Fusion Microscope For Microdissection Surgeon: Jas Newman MD Assist: ADRIENNE Chery Anesthesia: General Fluids and EBL: See anesthesia note Patient was seen in the Pre Anesthesia Care Unit (PACU) and the operative site was initialed by me. All questions were answered to the patients satisfaction and chart reviewed. The patient was taken to the operative room where pre- operative antibiotics were given 30 minutes prior to incision. General anesthesia was induced and neuro-monitoring leads placed. Arce catheter was placed. The patient was turned prone onto the [facility] spinal table. While positioning, I made sure that the belly was free to allow proper expansion of the lungs. The hips were extended and all bony prominences padded. The shoulders were abducted 80 degree and the elbows flexed 100 degrees with no tension on the brachial plexus. I checked the foot arterial pulses and they were palpable. The patient was prepped and draped and time out was taken at this time per usual protocol. At this time, the C-arm fluoroscope was brought in and was used to kacy the incision borders proximally and distally. Using a Number 10 Blade, an incision was made extending it proximally and distally per C arm kacy from the posterior spinous process of lumbar 3,4,5 down to the lumbo-dorsal fascia. All bleeding was controlled with electrocautery. Self-retaining retractors were placed. Electrocautery was then used to take down the lumbo-dorsal fascia, to free the muscle off the bone bilaterally. Care was taken to stay as close to the bone as possible to minimize the bleeding from the deep back muscles. A Rodrick retractor was placed over the posterior spinous process proximally and a lateral C-arm fluoroscope image was taken to insure we were at the correct level. Next, using bovie electrocautery, the deep fascia laterally to the facet joints was removed to expose the transverse processes of lumbar 3, 4 and 5 while taking care to avoid injuring the facet capsule at the proximal end of the incision at the Lumbar 3 level. Next, the microscope was bought in for visualization and using a Luxell rongeur, the posterior spinous process of lumbar 3 and 4 and 5 bone were removed and the bone was saved for use as local autograft. I used alternating Kerison 2 mm and 3 mm rongeurs to perform central laminectomies lumbar 5 and 4 and 3 to decompress the central canal. Next using alternating Kerison 2mm and 3 mm rongeurs, the superior articular facets of lumbar 3, 4 and 5 were removed bilaterally to decompress the lateral recess (facetectomies) and then extended proximally to decompress the foramen bilaterally (foraminotomies).Prior to the laminectomy, I had to use a frederick drill to thin out the laminae due to the very hard bone the patient had. I used a ball tipped nerve probed to insure that the respective nerve roots were able to be mobilized 5mm in each direction were unimpeded in the lateral recess and foramen. Next I carefully inspected the dura to make sure no durotomy was visible and it was not. I retracted the right lumbar 5 nerve medially and used increasing size ulises until the proper size prepared and then inserted a 10 X 28mm PEEK cage in to the disc space at L4/5 using C arm fluoroscopy. I repeated this process at the L3/4 level and placed a 11 X 28 mm PEEK cage at this level. I covered the exposed dura with gelfoam soaked in thrombin and the microscope was wheeled away from the operative filed. The C-arm fluoroscope was brought in and perfect AP views of the lumbar 3 and 4 and 5 pedicles were obtained. I placed bilateral pedicle screws at these levels by: using an. awl to make a airline pilot/first officer hole, then a ball tip robe to make sure there was no pedicle breach, then a 5.5 mm tap to prepare the track bilaterally. This step to place bilateral pedicle screws was repeated up to the lumbar 3, 4 and 5 level. 6.5 X45 mm pedicle screws were placed bilaterally at Lumbar 5, lumbar 4 and lumbar 3 using C arm guidance. Next, the c-arm fluoroscope took an AP and lateral x-ray to ensure proper placement of the pedicle screws. Next, the neuro-stimulation probe was placed over the tip of each screw and each screw stimulated only after a current greater than 10 mA was delivered to the screw. Next , I took a Midas Alexx Drill to decorticate the transverse process which were exposed and local bone graft, allograft bone and demineralized bone matrix were placed along the inter transverse process intervals bilaterally (the fusion bed). This step was the inter transverse fusion. Next a curved anu sized to fit the pedicle screw interval was placed and secured to each pedicle screw using set screws, The set screws were tightened using a torque screwdriver (set to 10 N*M torque) to secure the anu to the pedicle screws bilaterally. Final AP and lateral C arm fluoroscopic films were taken at this time. Next a 10 [place] Islander diameter hemovac drain was laced deep to the lumbo-dorsal fascia. The lumbo-dorsal fascia was closed with interrupted 0-Vicryl sutures. Next another 10 [place] hemovac drain was placed in the subcutaneous tissue. The subcutaneous tissue was closed with interrupted 2-0 Vicryl sutures. The skin was closed with running 2-0 nylon suture. A TONYA vacuum dressing was placed over the incision and care was taken to make sure a vacuum seal was kept. The pt. was turned supine onto the stretcher, extubated and taken to the recovery room in stable condition. Condition Stable Disposition Still a Patient JAS NEWMAN MD Jul 18, 2025 14:02
[2025-07-18] MEDS ORDERED: MORPHINE SULFATE 4 MG/ML SYR/VIAL IV PRN ×4 (14:15→15:15)
[2025-07-18] MEDS ORDERED: HYDROmorphone HCL 2 MG/ML VL/or syr IV PRN (14:15)
[2025-07-18] MEDS: ACETAMINOPHEN IV 100 ML IV ONE (14:48)
[2025-07-18] MEDS: HYDROmorphone HCL 2 MG/ML VL/or syr IV PRN (14:58)
[2025-07-18] MEDS: METOCLOPRAMIDE HCL 5MG/ml INJ 2ml VIAL IV PRN (14:58)
[2025-07-18] MEDS: ACETAMINOPHEN IV 1000 MG/100ML (10MG/ML) IV ONE (15:06)
--- NOTE | 2025-07-18 15:35 | DVH ---
C-ARM FLUOROSCOPY: PROCEDURE: l3-l5 spinal decompression FLUOROSCOPY TIME: 69 sec DAP: 35.12 mgy FINDINGS: Spot intraoperative C arm radiographs demonstrating l3-l5 spinal decompression. IMPRESSION: Please refer to surgical report for detailed findings.
[2025-07-18] MEDS: KETOROLAC TROMETH 30 MG/ML 1ML VIAL IV ONE (15:39)
[2025-07-18] MEDS: CYCLOBENZAPRINE HCL 10 MG TAB PO SCH (15:41)
[2025-07-18] MEDS: ceFAZolin 1GM/50ML 50 ML IV SCH (17:49)
[2025-07-18] MEDS: D5W/SOD CHLO 0.9% 1,000 ML IV SCH (19:13)
[2025-07-18] MEDS: DOCUSATE SOD 100 MG CAP PO SCH (21:18)
[2025-07-19] VITALS (8 sets, daily range): BP systolic 128–145; BP diastolic 55–98; PULSE 70–107; RESP 18–20; TEMP 97.4–98.3; O2SAT 95–98
[2025-07-19] MEDS: ACETAMINOPHEN 325 MG TAB PO PRN (09:59)
--- NOTE | 2025-07-19 11:01 | DVHPN2 ---
Progress Note - Surgical Date Seen: Jul 19, 2025 Post op day Post op day: 1 Subjective Patient reports: No new complaints, Feels better Review of Systems: NEURO:Abnormal (preop symptoms ) Objective Vital signs Vital Sign Date Time Temp Pulse Resp B/P (MAP) Pulse Ox O2 Delivery O2 Flow Rate FiO2 07/19/25 08:45 97.7 82 20 141/98 (112) 95 97.7 07/18/25 20:00 Room Air* 0 21 Total Intake and Output 07/18/25 07/18/25 07/19/25 15:00 23:00 07:00 Intake Total 160 ml 50 ml 2100 ml Output Total 250 ml 20 ml Balance -90 ml 30 ml 2100 ml Medications Current Medications Medications Dose Ordered Sig/Kristel Route Start Time Stop Time Status Last Admin Dose Admin Dextrose/Sodium Chloride 1,000 ml @ 100 mls/hr Q10H IV 07/18/25 14:00 07/19/25 05:56 100 MLS/HR Ondansetron HCl 4 mg Q4HP PRN IV 07/18/25 14:00 Acetaminophen 650 mg Q6HP PRN PO 07/18/25 14:00 07/19/25 09:59 650 MG Acetaminophen/ Hydrocodone Bitart 1 tab Q6HP PRN PO 07/18/25 14:00 Morphine Sulfate 1 mg Q4HP PRN IV 07/18/25 14:00 UNV Cyclobenzaprine HCl 10 mg TID PO 07/18/25 14:00 07/19/25 05:53 10 MG Docusate Sodium 100 mg BID PO 07/18/25 22:00 07/19/25 09:58 100 MG Nitroglycerin 0.4 mg Q5MINP PRN SL 07/18/25 14:00 Morphine Sulfate 2 mg Q30M PRN IV 07/18/25 14:00 UNV Morphine Sulfate 2 mg Q30MIN PRN IV 07/18/25 14:15 Morphine Sulfate 2 mg Q4HPRN PRN IV 07/18/25 15:15 Cefazolin Sodium 50 ml @ 100 mls/hr Q8HR IV 07/18/25 17:00 07/19/25 05:51 100 MLS/HR Laboratory Laboratory Tests 07/16/25 06:29 Test 07/16/25 06:29 Range/Units Serum Glucose 88 74-106 mg/dL Examination: GENERAL:Normal, HEENT:Normal, NECK:Normal, LUNGS:Normal, CVS:Normal, ABDOMEN:Normal, MSK:Normal, SKIN:Normal (TONYA intact, drains intact), NEURO:Normal (improved preoperative symptoms, patient ambulated 700 fett with PT), :Normal Problem List/Assessment/Plan Problems: (1) Acute post-operative pain (2) Muscle spasm of back Assessment and Plan Events of today Drain output still too high to discontinue, we will leave in another day and re- evaluate tomorrow Patient has been up with physical therapy and ambulated 700 ft around the nursing station Patient reports improvement in his preoperative symptoms Patient is passing gas and tolerating food pain is well controlled POD # Dx: -Disposition: -Pending -Discharge RX: -Follow up appointment: with Dr Newman on [id number] [facility] [address] [place] [id number] -Pain: - IV pain meds post op day 1, with PO supplementation, goal is to progress weaning off IV medications and control pain with PO only. morphine 1mg q 4 hours (PAIN 7-10) - P.O. analgesics:Tylenol 650MG (PAIN 1-3) [place] 10/325 mg (PAIN 4-6) - Muscle relaxers scheduled administration. This is a beneficial medications for the incisional pain as it is mostly related to muscle spasms. Flexeril 10 mg TID - Cepacol throat lozenges as needed for sore throat -Antibiotics Operative recommendations: -Postoperative dose:-Post operative antibiotics cefazolin 1 g IV piggyback every 8 hours x 48 hours total of 6 doses -DVT PPX: -Hold all chemical DVT/ blood thinners for 14 days postoperatively -use mechanical DVT PPX such as SCD's, ambulation -Activity: -PT evaluation and track patients progression -Sit at side of bed for meals -Goal: Ambulate independently and safely (may use assistive devices if needed) -Medical Therapy goals: -Afebrile- Patient may develop a expected post operative fever by day 2-3, this may not be accompanied with a elevation in WBC. if fever develops: Acetaminophen for fever. Albuterol nebulizer Tx every 12 hours for 24 hours to facilitate adequate lung expansion and prevent development of atelectasis. -Euglycemic: bloods sugars under 130mmol/L for optimal healing -Normotensive: Avoid events of hypertension. This helps to keep post operative healing intact and avoids destabilization of beneficial hemostatic coagulation. -Lumbar: -If patient is comfortable encouraged the patient to lay on their side to facilitate wound healing -Drains: -Hemovac drains: These will be to full compression unless otherwise ordered. Please record and document output AND characteristic of fluid present independently EVERY 6 hours more often as needed. if there in no output indicate this by documenting 0ml. If output is greater than 100 ml in one hour of yumiko blood call provider. These drains will be removed once the drainage is at a acceptable level (generally less than 100ml in 24 hours) -Tonya dressing: This will stay in place and will be removed at the patients follow up visit. Nursing is to assess the seal and power source. The seal should be intact and the power source should have a green flashing light indicating it is functioning well. Batteries can last up to 14 days. If a leak develops the dressing edges can be reinforced with a Tegaderm dressing to reestablish intact seal. The Tonya dressing is NOT a wound vac. This does not get changed, it does not need home health management. -Record output independently, drain 1. Is a deep drain and drain 2. Is a superficial drain. Wound drainage is described by type, color, amount, and odor. Drainage can be 1 Serous: Clear and thin, may be present in healing healthy wound. 2 Serosanguineous containing blood may also be present and healthy healing wound 3. Sanguinous primarily blood 4. Purulent this is thick, white, and pus like. It may be indicated to give of a infection and should constitute a call to the provider immediately with the plan that the sample should be cultured. -Arce: discontinued in OR -Dressings Take care not to disrupt the TONYA dressing seal. If there is a break in the seal it can be trouble shot with a Tegaderm dressing. -Dressing to Hemovac drains may be changed once the drains have been removed by the provider. -Bowel management: -Colace 100mg bid -Diet: -Clear liquid diet and advance as patient tolerates within dietary limitations ( example: diabetic, Cardiac) -Incentive Spirometer: -10 x hour while awake, RN please educate and observe repeat demonstration, have IS at bedside POD #1 -X-rays: - none indicated at this time -Consults: -Physical Therapy evaluation, treatment recommendations, and discharge recommendations Call with questions Dana Calzada [facility]- Orthopaedic Spine Surgery nurse practitioner For Dr Avery Newman Patient was examined, chart reviewed, labs evaluated, and diagnostic studies and findings analyzed. Case was discussed with Dr. Jas Newman who formulated the plan of care. This medical document was created using an electronic medical record system with [employer] dictation system. Although this document has been carefully reviewed, there might still be some phonetic and typographical errors. These areas are purely typographical due to imperfections of the software programs, and do not reflect any compromise in the patient's medical care. My Orders My Orders Orders - LILA CALZADA NP Procedure Category Date Status Time Morphine Sulfate PHA 07/18/25 In Process Injection 15:15 Incentive Spirometry ORDERS 07/18/25 Transmitted Q 1hr 15:13 Communication Order ORDERS 07/18/25 Transmitted 18:00 Communication Order ORDERS 07/19/25 Transmitted 00:00 Communication Order ORDERS 07/19/25 Transmitted 06:00 Communication Order ORDERS 07/19/25 Transmitted 12:00 Communication Order ORDERS 07/19/25 Transmitted 18:00 Communication Order ORDERS 07/20/25 Transmitted 00:00 Communication Order ORDERS 07/20/25 Transmitted 06:00 Communication Order ORDERS 07/20/25 Transmitted 12:00 Communication Order ORDERS 07/20/25 Transmitted 18:00 Communication Order ORDERS 5 Transmitted 00:00 Communication Order ORDERS 5 Transmitted 06:00 Communication Order ORDERS 5 Transmitted 12:00 Communication Order ORDERS 5 Transmitted 18:00 Communication Order ORDERS 6 Transmitted 00:00 Communication Order ORDERS 6 Transmitted 06:00 Communication Order ORDERS 6 Transmitted 12:00 Communication Order ORDERS 6 Transmitted 18:00 Communication Order ORDERS 7 Transmitted 00:00 Communication Order ORDERS 7 Transmitted 06:00 Communication Order ORDERS 07/23/25 Transmitted 12:00 Communication Order ORDERS 07/23/25 Transmitted 18:00 Communication Order ORDERS 8 Transmitted 00:00 Communication Order ORDERS 07/24/25 Transmitted 06:00 Communication Order ORDERS 07/24/25 Transmitted 12:00 Communication Order ORDERS 07/24/25 Transmitted 18:00 Communication Order ORDERS 07/25/25 Transmitted 00:00 Communication Order ORDERS 10//25 Transmitted 06:00 Communication Order ORDERS 07/25/25 Transmitted 12:00 Communication Order ORDERS 07/25/25 Transmitted 18:00 Cefazolin 1gm/50ml PHA 07/18/25 In Process (Ancef) 17:00 Plan discussed with Plan discussed with: Patient, Daughter, Other (Bedside nurse) Visit Coding Surgery Date of Service if different f: Jul 18, 2025 Billing Provider: LILA CALZADA NP Surgery Visit Codes: NOT BILLABLE LIAL CALZADA NP Jul 19, 2025 11:01
[2025-07-19] MEDS: HYDROcodone-ACET 10/325MG TAB PO PRN (17:26)
--- NOTE | 2025-07-19 17:52 | DVHPN2 ---
Reviewed: H&P Changes from previous H/P or p: No Changes General: Per HPI Objective Vitals Vital Signs Date Time Temp Pulse Resp B/P (MAP) Pulse Ox O2 Delivery O2 Flow Rate FiO2 07/19/25 17:00 97.7 71 20 145/85 (105) 97 97.7 07/19/25 08:00 Room Air* 0 21 Intake/Output Intake and Output 07/19/25 07:00 Intake Total 2310 ml Output Total 270 ml Balance 2040 ml Intake Oral 1050 ml IV Total 1260 ml Output Urine Total 250 ml Drainage Total 20 ml # Voids 3 Exam GEN: Healthy appearing, well-developed, NAD. HEENT: NC/AT; MMM. CV: RRR, no m/r/g. LUNGS: CTAB, no w/r/c. ABD: Soft, NT/ND, NBS, no masses or organomegaly. EXT: skin Warm, well perfused. no rashes. No clubbing, cyanosis, or edema. Patient with spinal pumps x2 NEURO: Ambulating with no limitations. No focal deficits. Medications Current Medications Medications Dose Ordered Sig/Kristel Route Start Time Stop Time Status Last Admin Dose Admin Dextrose/Sodium Chloride 1,000 ml @ 100 mls/hr Q10H IV 07/18/25 14:00 07/19/25 05:56 100 MLS/HR Ondansetron HCl 4 mg Q4HP PRN IV 07/18/25 14:00 Acetaminophen 650 mg Q6HP PRN PO 07/18/25 14:00 07/19/25 09:59 650 MG Acetaminophen/ Hydrocodone Bitart 1 tab Q6HP PRN PO 07/18/25 14:00 07/19/25 17:26 1 TAB Morphine Sulfate 1 mg Q4HP PRN IV 07/18/25 14:00 UNV Cyclobenzaprine HCl 10 mg TID PO 07/18/25 14:00 07/19/25 14:06 10 MG Docusate Sodium 100 mg BID PO 07/18/25 22:00 07/19/25 09:58 100 MG Nitroglycerin 0.4 mg Q5MINP PRN SL 07/18/25 14:00 Morphine Sulfate 2 mg Q30M PRN IV 07/18/25 14:00 UNV Morphine Sulfate 2 mg Q30MIN PRN IV 07/18/25 14:15 Morphine Sulfate 2 mg Q4HPRN PRN IV 07/18/25 15:15 Cefazolin Sodium 50 ml @ 100 mls/hr Q8HR IV 07/18/25 17:00 07/19/25 15:35 100 MLS/HR Lactulose 15 ml DAILY PO 07/20/25 10:00 Laboratory Results Laboratory Tests 07/16/25 06:29 Urinalysis Test 07/16/25 06:29 Urine Color Light-yellow (Yellow) Urine Clarity Clear (Clear) Urine pH 5.5 (5.0-9.0) Urine Specific [place] 1.023 (1.001-1.035) Urine Protein Negative (Negative) Urine Ketones Negative (Negative) Urine Blood Negative /uL (Negative) Urine Nitrite Negative (Negative) Urine Bilirubin Negative (Negative) Urine Urobilinogen Normal mg/dL (Negative) Urine Leukocyte Esterase Negative /uL (Negative) Urine RBC 1 /hpf (0 - 3) Urine Microscopic WBC 1 /HPF (0-3) Urine Squamous Epithelial Cells None seen /hpf (<5) Urine Bacteria None seen /hpf (None Seen) Urine Mucus Few (None Seen) Urine Glucose Normal mg/dL (Normal) Labs and/or images reviewed: Labs reviewed by me, Image(s) reviewed by me Assessment/Plan Assessment/Plan 07/19.: Hospitalist coverage for spinal patient. Chart reviewed. Patient is on Ancef and Flexeril t.i.d.. Patient has 2 spinal pumps and he is significant pain, pain prn already ordered by spinal team. Patient's movement and range of motion at the lumbar zone is very minimal, mostly due to pain. We will continue to follow peripherally with spinal team. Nurse mentioning patient normally constipated and is on docusate 100 mg b.i.d., we will add 10 g lactulose daily while patient is admitted. Defer rest of management to spinal team. Diagnosis: Status post laminectomy and fusion L3-4, L4-5, L5-S1 lumbar spondylolisthesis lumbar spinal stenosis incapacitating low back pain intractable radiculopathy Plan: Pain analgesia prn Ancef IV Flexeril p.o. t.i.d. Continue other home medications DVT prophylaxis SCDs Continue diet as GI prophylaxis Tele Full code Plan discussed with: Patient My Orders Orders - MARY JAMES MD Procedure Category Date Status Time Lactulose Oral PHA 07/20/25 In Process 10:00 Date of Service: Jul 19, 2025 Billing Provider: MARY JAMES MD Common Visit Codes: [id number] INP/OBS CARE(MOD) MARY JAMES MD Jul 19, 2025 17:52
[2025-07-20] VITALS (8 sets, daily range): BP systolic 129–147; BP diastolic 71–82; PULSE 67–111; RESP 18–20; TEMP 97.4–98.2; O2SAT 93–99
--- NOTE | 2025-07-20 08:03 | DVHPN2 ---
Progress Note - Surgical Date Seen: Jul 20, 2025 Post op day Post op day: 2 Subjective Patient reports: No new complaints, Feels better, Other (IS HAVING MUSCLE SPASMS) Review of Systems: NEURO:Abnormal (WEAKNESS ble) Objective Vital signs Vital Sign Date Time Temp Pulse Resp B/P (MAP) Pulse Ox O2 Delivery O2 Flow Rate FiO2 07/20/25 05:00 98.1 67 18 137/71 (93) 95 98.1 07/19/25 20:00 Room Air* 0 21 Total Intake and Output 07/19/25 07/19/25 07/20/25 15:00 23:00 07:00 Intake Total 100 ml 825 ml 425 ml Output Total 850 ml Balance 100 ml -25 ml 425 ml Medications Current Medications Medications Dose Ordered Sig/Kristel Route Start Time Stop Time Status Last Admin Dose Admin Dextrose/Sodium Chloride 1,000 ml @ 100 mls/hr Q10H IV 07/18/25 14:00 07/20/25 01:29 100 MLS/HR Ondansetron HCl 4 mg Q4HP PRN IV 07/18/25 14:00 Acetaminophen 650 mg Q6HP PRN PO 07/18/25 14:00 07/19/25 20:48 650 MG Acetaminophen/ Hydrocodone Bitart 1 tab Q6HP PRN PO 07/18/25 14:00 07/20/25 02:02 1 TAB Morphine Sulfate 1 mg Q4HP PRN IV 07/18/25 14:00 UNV Cyclobenzaprine HCl 10 mg TID PO 07/18/25 14:00 07/20/25 05:36 10 MG Docusate Sodium 100 mg BID PO 07/18/25 22:00 07/19/25 20:48 100 MG Nitroglycerin 0.4 mg Q5MINP PRN SL 07/18/25 14:00 Morphine Sulfate 2 mg Q30M PRN IV 07/18/25 14:00 UNV Morphine Sulfate 2 mg Q30MIN PRN IV 07/18/25 14:15 Morphine Sulfate 2 mg Q4HPRN PRN IV 07/18/25 15:15 Cefazolin Sodium 50 ml @ 100 mls/hr Q8HR IV 07/18/25 17:00 07/20/25 05:37 100 MLS/HR Lactulose 15 ml DAILY PO 10/4/25 10:00 Laboratory Laboratory Tests 07/16/25 06:29 Test 07/16/25 06:29 Range/Units Serum Glucose 88 74-106 mg/dL Examination: GENERAL:Normal, HEENT:Normal, NECK:Normal, LUNGS:Normal, CVS:Normal, ABDOMEN:Normal, MSK:Abnormal (muscle spasms poorly controlled), SKIN:Normal (drains, TONYA intact), NEURO:Normal (improving- deconditioned slightly), :Normal Problem List/Assessment/Plan Problems: (1) Muscle spasm of back (2) Acute post-operative pain Assessment and Plan Events of today Drain output still too high to discontinue, we will leave in another day and re- evaluate tomorrow Patient has been up to chair, feeling muscle spasms Patient reports improvement in his preoperative symptoms Patient is passing gas and tolerating food pain is well controlled POD #2 -Disposition: -Pending -Discharge RX: already picked up -Follow up appointment: with Dr Newman on scheduled appt 07/22 [id number] [facility] [address] [place] [address] -Pain: - IV pain meds post op day 1, with PO supplementation, goal is to progress weaning off IV medications and control pain with PO only. morphine 1mg q 4 hours (PAIN 7-10) - P.O. analgesics:Tylenol 650MG (PAIN 1-3) [place] 10/325 mg (PAIN 4-6) - Muscle relaxers scheduled administration. This is a beneficial medications for the incisional pain as it is mostly related to muscle spasms. Flexeril 10 mg TID - Cepacol throat lozenges as needed for sore throat -Antibiotics Operative recommendations: -Postoperative dose:-Post operative antibiotics cefazolin 1 g IV piggyback every 8 hours x 48 hours total of 6 doses -DVT PPX: -Hold all chemical DVT/ blood thinners for 14 days postoperatively -use mechanical DVT PPX such as SCD's, ambulation -Activity: -PT evaluation and track patients progression -Sit at side of bed for meals -Goal: Ambulate independently and safely (may use assistive devices if needed) -Medical Therapy goals: -Afebrile- Patient may develop a expected post operative fever by day 2-3, this may not be accompanied with a elevation in WBC. if fever develops: Acetaminophen for fever. Albuterol nebulizer Tx every 12 hours for 24 hours to facilitate adequate lung expansion and prevent development of atelectasis. -Euglycemic: bloods sugars under 130mmol/L for optimal healing -Normotensive: Avoid events of hypertension. This helps to keep post operative healing intact and avoids destabilization of beneficial hemostatic coagulation. -Lumbar: -If patient is comfortable encouraged the patient to lay on their side to facilitate wound healing -Drains: -Hemovac drains: These will be to full compression unless otherwise ordered. Please record and document output AND characteristic of fluid present independently EVERY 6 hours more often as needed. if there in no output indicate this by documenting 0ml. If output is greater than 100 ml in one hour of yumiko blood call provider. These drains will be removed once the drainage is at a acceptable level (generally less than 100ml in 24 hours) -Tonya dressing: This will stay in place and will be removed at the patients follow up visit. Nursing is to assess the seal and power source. The seal should be intact and the power source should have a green flashing light indicating it is functioning well. Batteries can last up to 14 days. If a leak develops the dressing edges can be reinforced with a Tegaderm dressing to reestablish intact seal. The Tonya dressing is NOT a wound vac. This does not get changed, it does not need home health management. -Record output independently, drain 1. Is a deep drain and drain 2. Is a superficial drain. Wound drainage is described by type, color, amount, and odor. Drainage can be 1 Serous: Clear and thin, may be present in healing healthy wound. 2 Serosanguineous containing blood may also be present and healthy healing wound 3. Sanguinous primarily blood 4. Purulent this is thick, white, and pus like. It may be indicated to give of a infection and should constitute a call to the provider immediately with the plan that the sample should be cultured. -Arce: discontinued in OR -Dressings Take care not to disrupt the TONYA dressing seal. If there is a break in the seal it can be trouble shot with a Tegaderm dressing. -Dressing to Hemovac drains may be changed once the drains have been removed by the provider. -Bowel management: -Colace 100mg bid -Diet: -Clear liquid diet and advance as patient tolerates within dietary limitations ( example: diabetic, Cardiac) -Incentive Spirometer: -10 x hour while awake, RN please educate and observe repeat demonstration, have IS at bedside POD #1 -X-rays: - none indicated at this time -Consults: -Physical Therapy evaluation, treatment recommendations, and discharge recommendations Call with questions Dana Diaz ACNP- Orthopaedic Spine Surgery nurse practitioner For Dr Avery Newman Patient was examined, chart reviewed, labs evaluated, and diagnostic studies and findings analyzed. Case was discussed with Dr. Jas Newman who formulated the plan of care. This medical document was created using an electronic medical record system with [employer] dictation system. Although this document has been carefully reviewed, there might still be some phonetic and typographical errors. These areas are purely typographical due to imperfections of the software programs, and do not reflect any compromise in the patient's medical care. My Orders My Orders 07/20/25 soma Plan discussed with Plan discussed with: Patient, Other (bedsid Marlo) Visit Coding Surgery Date of Service if different f: Jul 18, 2025 Billing Provider: LILA DIAZ NP Surgery Visit Codes: NOT BILLABLE LILA DIAZ NP Jul 20, 2025 08:03
[2025-07-20] MEDS: LACTULOSE 20Gm/30ML SOLN PO SCH (09:31)
[2025-07-20] MEDS: CARISOPRODOL 350 MG TAB PO SCH (12:36)
--- NOTE | 2025-07-20 16:15 | DVHPN2 ---
Subjective I am assuming the care of the patient from today onwards who was under the care of the [facility] Hospitalist team. Detailed sign out obtained. Patient is complaining of minimal pain in the lumbar region, Reviewed: H&P Changes from previous H/P or p: No Changes General: Per HPI Objective Vitals Vital Signs Date Time Temp Pulse Resp B/P (MAP) Pulse Ox O2 Delivery O2 Flow Rate FiO2 07/20/25 15:06 98.2 111 20 147/75 (99) 97 98.2 07/20/25 08:00 Room Air* 0 21 Intake/Output Intake and Output 07/20/25 07:00 Intake Total 1350 ml Output Total 850 ml Balance 500 ml Intake Oral 1300 ml IV Total 50 ml Output Urine Total 850 ml # Voids 3 Exam HEENT pupils are reactive Neck is supple CV is S1-S2 regular rate and rhythm Respiratory diminished breath sounds bases GI positive bowel sound Extremity no edema [employer] no motor deficit Medications Current Medications Medications Dose Ordered Sig/Kristel Route Start Time Stop Time Status Last Admin Dose Admin Dextrose/Sodium Chloride 1,000 ml @ 100 mls/hr Q10H IV 07/18/25 14:00 07/20/25 14:09 100 MLS/HR Ondansetron HCl 4 mg Q4HP PRN IV 07/18/25 14:00 Acetaminophen 650 mg Q6HP PRN PO 07/18/25 14:00 07/20/25 11:25 650 MG Acetaminophen/ Hydrocodone Bitart 1 tab Q6HP PRN PO 07/18/25 14:00 07/20/25 09:33 1 TAB Morphine Sulfate 1 mg Q4HP PRN IV 07/18/25 14:00 UNV Docusate Sodium 100 mg BID PO 07/18/25 22:00 07/20/25 09:31 100 MG Nitroglycerin 0.4 mg Q5MINP PRN SL 07/18/25 14:00 Morphine Sulfate 2 mg Q30M PRN IV 07/18/25 14:00 UNV Morphine Sulfate 2 mg Q30MIN PRN IV 07/18/25 14:15 Morphine Sulfate 2 mg Q4HPRN PRN IV 07/18/25 15:15 Cefazolin Sodium 50 ml @ 100 mls/hr Q8HR IV 07/18/25 17:00 07/20/25 14:09 100 MLS/HR Lactulose 15 ml DAILY PO 07/20/25 10:00 07/20/25 09:31 15 ML Carisoprodol 350 mg TID PO 07/20/25 12:00 07/20/25 12:36 350 MG Laboratory Results Laboratory Tests 07/16/25 06:29 Urinalysis Test 07/16/25 06:29 Urine Color Light-yellow (Yellow) Urine Clarity Clear (Clear) Urine pH 5.5 (5.0-9.0) Urine Specific [place] 1.023 (1.001-1.035) Urine Protein Negative (Negative) Urine Ketones Negative (Negative) Urine Blood Negative /uL (Negative) Urine Nitrite Negative (Negative) Urine Bilirubin Negative (Negative) Urine Urobilinogen Normal mg/dL (Negative) Urine Leukocyte Esterase Negative /uL (Negative) Urine RBC 1 /hpf (0 - 3) Urine Microscopic WBC 1 /HPF (0-3) Urine Squamous Epithelial Cells None seen /hpf (<5) Urine Bacteria None seen /hpf (None Seen) Urine Mucus Few (None Seen) Urine Glucose Normal mg/dL (Normal) Assessment/Plan Assessment/Plan 69-year-old male with a known history of chronic back pain chronic neck pain with a previous history of laminectomy at C3-4-5 presented to the hospital for elective surgery. 1. Lumbar radiculopathy status post L3-4/L4-5/L5-S1 lumbar spinal surgery 2. Acute on chronic back pain 3. Status post laminectomy with the fusion surgery at C3-4-5 -continue pain meds as needed, follow up for spine surgery recommendations. Plan discussed with: Patient Date of Service: Jul 20, 2025 Billing Provider: ROSALINDA HERNANDEZ MD Common Visit Codes: [id number] INP/OBS CARE(MOD) ROSALINDA HERNANDEZ MD Jul 20, 2025 16:15
[2025-07-21] VITALS (9 sets, daily range): BP systolic 128–163; BP diastolic 69–94; PULSE 72–105; RESP 18–21; TEMP 97–98.9; O2SAT 91–99
[2025-07-21] MEDS ORDERED: CITRIC ACID PO PRN (15:30)
[2025-07-21] MEDS ORDERED: [UNRECOGNIZED DRUG - OTHER] PO PRN (15:30)
[2025-07-21] MEDS ORDERED: ASPIRIN PO PRN (15:30)
[2025-07-21] MEDS ORDERED: SODIUM BICARBONATE PO PRN (15:30)
--- NOTE | 2025-07-21 16:06 | DVHPN2 ---
Subjective Patient's had a question as patient has a moderate assist when he gets out of bed. Patient and patient's family requesting intermediate facility . We will wait for the physical therapy evaluation and decision. All the questions of the on the phone answered satisfactorily. Reviewed: H&P Changes from previous H/P or p: No Changes General: Per HPI Objective Vitals Vital Signs Date Time Temp Pulse Resp B/P (MAP) Pulse Ox O2 Delivery O2 Flow Rate FiO2 07/21/25 13:00 97.8 72 18 163/87 (112) 91 97.8 07/21/25 07:40 Room Air* 0 21 Intake/Output Intake and Output 07/21/25 07:00 Intake Total 2000 ml Output Total 375 ml Balance 1625 ml Intake Oral 1900 ml IV Total 100 ml Output Urine Total 375 ml # Voids 7 # Bowel Movements 1 Exam HEENT pupils are reactive Neck is supple CV is S1-S2 regular rate and rhythm Respiratory diminished breath sounds bases GI positive bowel sound 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 Medications Current Medications Medications Dose Ordered Sig/Kristel Route Start Time Stop Time Status Last Admin Dose Admin Dextrose/Sodium Chloride 1,000 ml @ 100 mls/hr Q10H IV 07/18/25 14:00 07/20/25 14:09 100 MLS/HR Ondansetron HCl 4 mg Q4HP PRN IV 07/18/25 14:00 Acetaminophen 650 mg Q6HP PRN PO 07/18/25 14:00 07/21/25 12:06 650 MG Acetaminophen/ Hydrocodone Bitart 1 tab Q6HP PRN PO 07/18/25 14:00 07/21/25 08:47 1 TAB Morphine Sulfate 1 mg Q4HP PRN IV 07/18/25 14:00 UNV Docusate Sodium 100 mg BID PO 07/18/25 22:00 07/21/25 08:57 100 MG Nitroglycerin 0.4 mg Q5MINP PRN SL 07/18/25 14:00 Morphine Sulfate 2 mg Q30M PRN IV 07/18/25 14:00 UNV Morphine Sulfate 2 mg Q30MIN PRN IV 07/18/25 14:15 Morphine Sulfate 2 mg Q4HPRN PRN IV 07/18/25 15:15 Cefazolin Sodium 50 ml @ 100 mls/hr Q8HR IV 07/18/25 17:00 10/5/25 13:45 100 MLS/HR Lactulose 15 ml DAILY PO 07/20/25 10:00 07/21/25 08:57 15 ML Carisoprodol 350 mg TID PO 07/20/25 12:00 07/21/25 13:44 350 MG Sennosides 17.2 mg HS PO 07/21/25 22:00 Enteral Nutritional Formula 240 ml TIDWM PO 07/21/25 18:00 Pantoprazole Sodium 40 mg DAILY IV 07/22/25 10:00 Patient Own Medication 1 BIDP PRN PO 07/21/25 15:30 Laboratory Results Laboratory Tests 07/16/25 06:29 Urinalysis Test 07/16/25 06:29 Urine Color Light-yellow (Yellow) Urine Clarity Clear (Clear) Urine pH 5.5 (5.0-9.0) Urine Specific [place] 1.023 (1.001-1.035) Urine Protein Negative (Negative) Urine Ketones Negative (Negative) Urine Blood Negative /uL (Negative) Urine Nitrite Negative (Negative) Urine Bilirubin Negative (Negative) Urine Urobilinogen Normal mg/dL (Negative) Urine Leukocyte Esterase Negative /uL (Negative) Urine RBC 1 /hpf (0 - 3) Urine Microscopic WBC 1 /HPF (0-3) Urine Squamous Epithelial Cells None seen /hpf (<5) Urine Bacteria None seen /hpf (None Seen) Urine Mucus Few (None Seen) Urine Glucose Normal mg/dL (Normal) Assessment/Plan Assessment/Plan 69-year-old male with a known history of chronic back pain chronic neck pain with a previous history of laminectomy at C3-4-5 presented to the hospital for elective surgery. 1. Lumbar radiculopathy status post L3-4/L4-5/L5-S1 lumbar spinal surgery 2. Acute on chronic back pain 3. Status post laminectomy with the fusion surgery at C3-4-5 -continue pain meds as needed, follow up for spine surgery recommendations. Plan discussed with: Patient, Spouse My Orders Orders - ROSALINDA HERNANDEZ MD Procedure Category Date Status Time Senna Pod Tablet PHA 07/21/25 In Process (Senokot Tablet) 22:00 Nutritional PHA 07/21/25 In Process Supplements (Ensure 18:00 Pantoprazole PHA 07/22/25 In Process (Protonix) 10:00 Patients Own PHA 10/5/25 In Process Medication 15:30 Date of Service: Jul 21, 2025 Billing Provider: ROSALINDA HERNANDEZ MD Common Visit Codes: [id number] INP/OBS CARE(MOD) ROSALINDA HERNANDEZ MD Jul 21, 2025 16:06
--- NOTE | 2025-07-21 16:25 | DVHPN2 ---
Progress Note - Surgical Date Seen: Jul 21, 2025 Post op day Post op day: 3 Subjective Patient reports: No new complaints, Feels better Review of Systems: NEURO:Normal (Improving pre op sympt) Objective Vital signs Vital Sign Date Time Temp Pulse Resp B/P (MAP) Pulse Ox O2 Delivery O2 Flow Rate FiO2 07/21/25 13:00 97.8 72 18 163/87 (112) 91 97.8 07/21/25 07:40 Room Air* 0 21 Total Intake and Output 07/20/25 07/20/25 07/21/25 15:00 23:00 07:00 Intake Total 416 ml 1384 ml 200 ml Output Total 375 ml Balance 416 ml 1009 ml 200 ml Medications Current Medications Medications Dose Ordered Sig/Kristel Route Start Time Stop Time Status Last Admin Dose Admin Dextrose/Sodium Chloride 1,000 ml @ 100 mls/hr Q10H IV 07/18/25 14:00 07/20/25 14:09 100 MLS/HR Ondansetron HCl 4 mg Q4HP PRN IV 07/18/25 14:00 Acetaminophen 650 mg Q6HP PRN PO 07/18/25 14:00 07/21/25 12:06 650 MG Acetaminophen/ Hydrocodone Bitart 1 tab Q6HP PRN PO 07/18/25 14:00 07/21/25 08:47 1 TAB Morphine Sulfate 1 mg Q4HP PRN IV 07/18/25 14:00 UNV Docusate Sodium 100 mg BID PO 07/18/25 22:00 07/21/25 08:57 100 MG Nitroglycerin 0.4 mg Q5MINP PRN SL 07/18/25 14:00 Morphine Sulfate 2 mg Q30M PRN IV 07/18/25 14:00 UNV Morphine Sulfate 2 mg Q30MIN PRN IV 07/18/25 14:15 Morphine Sulfate 2 mg Q4HPRN PRN IV 07/18/25 15:15 Cefazolin Sodium 50 ml @ 100 mls/hr Q8HR IV 07/18/25 17:00 07/21/25 13:45 100 MLS/HR Lactulose 15 ml DAILY PO 07/20/25 10:00 07/21/25 08:57 15 ML Carisoprodol 350 mg TID PO 07/20/25 12:00 07/21/25 13:44 350 MG Sennosides 17.2 mg HS PO 07/21/25 22:00 Enteral Nutritional Formula 240 ml TIDWM PO 07/21/25 18:00 Pantoprazole Sodium 40 mg DAILY IV 07/22/25 10:00 Patient Own Medication 1 BIDP PRN PO 07/21/25 15:30 Laboratory Laboratory Tests 07/16/25 06:29 Test 07/16/25 06:29 Range/Units Serum Glucose 88 74-106 mg/dL Examination: GENERAL:Normal, HEENT:Normal, NECK:Normal, LUNGS:Normal, CVS:Normal, ABDOMEN:Normal, MSK:Normal (patient is fatigued with PT did walk the unit today), SKIN:Normal (PICI intact, drains intact, pulling drains 2), NEURO:Normal, :Normal Problem List/Assessment/Plan Assessment and Plan Events of today Drain output #1 still too high to discontinue, we will leave in another day and re-evaluate tomorrow. drain #2 DC Patient has been up to chair, feeling muscle spasms Patient reports improvement in his preoperative symptoms Patient is passing gas and tolerating food pain is well controlled Soma working well given enama today POD #2 -Disposition: -Pending -Discharge RX: already picked up -Follow up appointment: with Dr Newman on scheduled appt 07/22 [id number] [facility] [address] [place] [id number] -Pain: - IV pain meds post op day 1, with PO supplementation, goal is to progress weaning off IV medications and control pain with PO only. morphine 1mg q 4 hours (PAIN 7-10) - P.O. analgesics:Tylenol 650MG (PAIN 1-3) [place] 10/325 mg (PAIN 4-6) - Muscle relaxers scheduled administration. This is a beneficial medications for the incisional pain as it is mostly related to muscle spasms. Flexeril 10 mg TID - Cepacol throat lozenges as needed for sore throat -Antibiotics Operative recommendations: -Postoperative dose:-Post operative antibiotics cefazolin 1 g IV piggyback every 8 hours x 48 hours total of 6 doses -DVT PPX: -Hold all chemical DVT/ blood thinners for 14 days postoperatively -use mechanical DVT PPX such as SCD's, ambulation -Activity: -PT evaluation and track patients progression -Sit at side of bed for meals -Goal: Ambulate independently and safely (may use assistive devices if needed) -Medical Therapy goals: -Afebrile- Patient may develop a expected post operative fever by day 2-3, this may not be accompanied with a elevation in WBC. if fever develops: Acetaminophen for fever. Albuterol nebulizer Tx every 12 hours for 24 hours to facilitate adequate lung expansion and prevent development of atelectasis. -Euglycemic: bloods sugars under 130mmol/L for optimal healing -Normotensive: Avoid events of hypertension. This helps to keep post operative healing intact and avoids destabilization of beneficial hemostatic coagulation. -Lumbar: -If patient is comfortable encouraged the patient to lay on their side to facilitate wound healing -Drains: -Hemovac drains: These will be to full compression unless otherwise ordered. Please record and document output AND characteristic of fluid present independently EVERY 6 hours more often as needed. if there in no output indicate this by documenting 0ml. If output is greater than 100 ml in one hour of yumiko blood call provider. These drains will be removed once the drainage is at a acceptable level (generally less than 100ml in 24 hours) -Tonya dressing: This will stay in place and will be removed at the patients follow up visit. Nursing is to assess the seal and power source. The seal should be intact and the power source should have a green flashing light indicating it is functioning well. Batteries can last up to 14 days. If a leak develops the dressing edges can be reinforced with a Tegaderm dressing to reestablish intact seal. The Tonya dressing is NOT a wound vac. This does not get changed, it does not need home health management. -Record output independently, drain 1. Is a deep drain and drain 2. Is a superficial drain. Wound drainage is described by type, color, amount, and odor. Drainage can be 1 Serous: Clear and thin, may be present in healing healthy wound. 2 Serosanguineous containing blood may also be present and healthy healing wound 3. Sanguinous primarily blood 4. Purulent this is thick, white, and pus like. It may be indicated to give of a infection and should constitute a call to the provider immediately with the plan that the sample should be cultured. -Arce: discontinued in OR -Dressings Take care not to disrupt the TONYA dressing seal. If there is a break in the seal it can be trouble shot with a Tegaderm dressing. -Dressing to Hemovac drains may be changed once the drains have been removed by the provider. -Bowel management: -Colace 100mg bid -Diet: -Clear liquid diet and advance as patient tolerates within dietary limitations ( example: diabetic, Cardiac) -Incentive Spirometer: -10 x hour while awake, RN please educate and observe repeat demonstration, have IS at bedside POD #1 -X-rays: - none indicated at this time -Consults: -Physical Therapy evaluation, treatment recommendations, and discharge recommendations Call with questions Dana Calzada ACNP- Orthopaedic Spine Surgery nurse practitioner For Dr Avery Newman Patient was examined, chart reviewed, labs evaluated, and diagnostic studies and findings analyzed. Case was discussed with Dr. Jas Newman who formulated the plan of care. This medical document was created using an electronic medical record system with [employer] dictation system. Although this document has been carefully reviewed, there might still be some phonetic and typographical errors. These areas are purely typographical due to imperfections of the software programs, and do not reflect any compromise in the patient's medical care. Plan discussed with Plan discussed with: Patient Visit Coding Surgery Date of Service if different f: Jul 18, 2025 Billing Provider: LILA CALZADA NP Surgery Visit Codes: NOT BILLABLE LILA CALZADA NP Jul 21, 2025 16:25
[2025-07-21] MEDS: PANTOPRAZOLE 40 MG/10 ML VIAL INJ IV ONE (17:08)
[2025-07-21] MEDS: Ensure HIGH Protein Chocolate 8oz Bottle PO SCH (18:00)
[2025-07-21] MEDS: SENNA 8.6 MG TAB PO SCH (21:43)
[2025-07-22 01:00] VITALS: BP 138/79; PULSE 68; RESP 18; TEMP 98.7; O2SAT 98
[2025-07-22 05:00] VITALS: BP 134/80; PULSE 81; RESP 18; TEMP 97.6; O2SAT 96
[2025-07-22 08:00] VITALS: PULSE 80; O2SAT 95
[2025-07-22] MEDS: PANTOPRAZOLE 40 MG/10 ML VIAL INJ IV SCH (08:59)
[2025-07-22 09:00] VITALS: BP 137/81; PULSE 82; RESP 18; TEMP 97.5; O2SAT 93
[2025-07-22] MEDS: FLEET ENEMA(ADULT) 135 ML PR ONE (12:59)
[2025-07-22 13:00] VITALS: BP 139/69; PULSE 77; RESP 20; TEMP 100; O2SAT 92
--- NOTE | 2025-07-22 14:17 | DVHPN2 ---
Progress Note - Surgical Date Seen: Jul 22, 2025 Post op day Post op day: 4 Subjective Patient reports: No new complaints, Feels better Review of Systems: MSK:Normal, NEURO:Normal (improvment in preoperative sympt) Objective Vital signs Vital Sign Date Time Temp Pulse Resp B/P (MAP) Pulse Ox O2 Delivery O2 Flow Rate FiO2 07/22/25 08:00 95 Room Air* 0 21 07/22/25 08:00 80 07/22/25 05:00 97.6 18 134/80 (98) 97.6 Total Intake and Output 07/21/25 07/21/25 07/22/25 15:00 23:00 07:00 Intake Total 850 ml 600 ml Output Total 225 ml Balance 850 ml 375 ml Medications Current Medications Medications Dose Ordered Sig/Kristel Route Start Time Stop Time Status Last Admin Dose Admin Dextrose/Sodium Chloride 1,000 ml @ 100 mls/hr Q10H IV 07/18/25 14:00 07/22/25 09:00 100 MLS/HR Ondansetron HCl 4 mg Q4HP PRN IV 07/18/25 14:00 Acetaminophen 650 mg Q6HP PRN PO 07/18/25 14:00 07/21/25 12:06 650 MG Acetaminophen/ Hydrocodone Bitart 1 tab Q6HP PRN PO 07/18/25 14:00 07/21/25 18:54 1 TAB Morphine Sulfate 1 mg Q4HP PRN IV 07/18/25 14:00 UNV Docusate Sodium 100 mg BID PO 07/18/25 22:00 07/22/25 09:00 100 MG Nitroglycerin 0.4 mg Q5MINP PRN SL 07/18/25 14:00 Morphine Sulfate 2 mg Q30M PRN IV 07/18/25 14:00 UNV Morphine Sulfate 2 mg Q30MIN PRN IV 07/18/25 14:15 Morphine Sulfate 2 mg Q4HPRN PRN IV 07/18/25 15:15 Cefazolin Sodium 50 ml @ 100 mls/hr Q8HR IV 07/18/25 17:00 07/22/25 12:59 100 MLS/HR Lactulose 15 ml DAILY PO 07/20/25 10:00 07/22/25 08:59 15 ML Carisoprodol 350 mg TID PO 07/20/25 12:00 07/22/25 12:58 350 MG Sennosides 17.2 mg HS PO 07/21/25 22:00 07/21/25 21:43 17.2 MG Enteral Nutritional Formula 240 ml TIDWM PO 07/21/25 18:00 07/22/25 12:00 240 ML Pantoprazole Sodium 40 mg DAILY IV 07/22/25 10:00 07/22/25 08:59 40 MG Patient Own Medication 1 BIDP PRN PO 07/21/25 15:30 Laboratory Laboratory Tests 07/16/25 06:29 Test 07/16/25 06:29 Range/Units Serum Glucose 88 74-106 mg/dL Examination: GENERAL:Normal, HEENT:Normal, NECK:Normal, LUNGS:Normal, CVS:Normal, ABDOMEN:Abnormal (passing gas, had BM. still bloated but better), MSK:Normal (ambulating around unit with walker), SKIN:Normal (TONYA intact,drain DC), NEURO:Normal (improved greatly since surgery ), :Normal Problem List/Assessment/Plan Problems: (1) Muscle spasm of back (2) Acute post-operative pain Assessment and Plan Events of today Drain output #1 is acceptable will discontinue Patient has been up to chair, feeling muscle spasms Patient reports improvement in his preoperative symptoms Patient is passing gas and tolerating food pain is well controlled Soma working well plan to DC POD #4 -Disposition: -home with home health -Discharge RX: already picked up -Follow up appointment: call for new appointment [id number] [facility] [address] [place] [address] -Pain: - IV pain meds post op day 1, with PO supplementation, goal is to progress weaning off IV medications and control pain with PO only. morphine 1mg q 4 hours (PAIN 7-10) - P.O. analgesics:Tylenol 650MG (PAIN 1-3) [place] 10/325 mg (PAIN 4-6) - Muscle relaxers scheduled administration. This is a beneficial medications for the incisional pain as it is mostly related to muscle spasms. Flexeril 10 mg TID - Cepacol throat lozenges as needed for sore throat -Antibiotics Operative recommendations: -Postoperative dose:-Post operative antibiotics cefazolin 1 g IV piggyback every 8 hours x 48 hours total of 6 doses -DVT PPX: -Hold all chemical DVT/ blood thinners for 14 days postoperatively -use mechanical DVT PPX such as SCD's, ambulation -Activity: -PT evaluation and track patients progression -Sit at side of bed for meals -Goal: Ambulate independently and safely (may use assistive devices if needed) -Medical Therapy goals: -Afebrile- Patient may develop a expected post operative fever by day 2-3, this may not be accompanied with a elevation in WBC. if fever develops: Acetaminophen for fever. Albuterol nebulizer Tx every 12 hours for 24 hours to facilitate adequate lung expansion and prevent development of atelectasis. -Euglycemic: bloods sugars under 130mmol/L for optimal healing -Normotensive: Avoid events of hypertension. This helps to keep post operative healing intact and avoids destabilization of beneficial hemostatic coagulation. -Lumbar: -If patient is comfortable encouraged the patient to lay on their side to facilitate wound healing -Dressings Take care not to disrupt the TONYA dressing seal. If there is a break in the seal it can be trouble shot with a Tegaderm dressing. -Dressing to Hemovac drains may be changed once the drains have been removed by the provider. -Bowel management: -Colace 100mg bid -Diet: -Clear liquid diet and advance as patient tolerates within dietary limitations ( example: diabetic, Cardiac) -Incentive Spirometer: -10 x hour while awake, RN please educate and observe repeat demonstration, have IS at bedside POD #1 -X-rays: - none indicated at this time -Consults: -Physical Therapy evaluation, treatment recommendations, and discharge recommendations Call with questions Dana Diaz [facility]- Orthopaedic Spine Surgery nurse practitioner For Dr Avery Newman Patient was examined, chart reviewed, labs evaluated, and diagnostic studies and findings analyzed. Case was discussed with Dr. Jas Newman who formulated the plan of care. This medical document was created using an electronic medical record system with [employer] dictation system. Although this document has been carefully reviewed, there might still be some phonetic and typographical errors. These areas are purely typographical due to imperfections of the software programs, and do not reflect any compromise in the patient's medical care. Plan discussed with Plan discussed with: Patient, Daughter, Other (bedside rn) Visit Coding Surgery Date of Service if different f: Jul 18, 2025 Billing Provider: LILA DIAZ NP Surgery Visit Codes: NOT BILLABLE LILA DIAZ NP Jul 22, 2025 14:17
[2025-07-22] MEDS ORDERED: CARI-579 PO (15:10)
--- NOTE | 2025-07-22 15:14 | DVHDS2 ---
ASSESSMENT ASSESSMENT Assessment same Problems: (1) Acute post-operative pain Assessments: Patient has post op meds already (2) Muscle spasm of back Assessments: Patient has post op meds already LILA CALZADA NP Jul 22, 2025 15:14
--- NOTE | 2025-07-22 15:26 | DVHDS2 ---
Discharge Summary Date of Admission Jul 18, 2025 at 13:48 Date of Discharge: Jul 22, 2025 Admitting Diagnosis 1. 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 spondylolisthesis at Lumbar 4/5 3. severe neurogenic claudication Wounds: Posterior lumbar incision covered with galen dressing which is functional and an intact seal. Two drain sites to the right of galen dressing. Covered with gauze and Tegaderm Labs/Diagnostic Data: Laboratory Results Test 07/16/25 06:29 White Blood Count 8.1 10^3/uL (4.4-10.8) Red Blood Count 4.55 10^6/uL (4.5-5.90) Hemoglobin 14.4 g/dL (13.5-17.5) Hematocrit 41.4 % (41.0-53.0) Mean Corpuscular Volume 90.9 fL (80.0-100.0) Mean Corpuscular Hemoglobin 31.6 pg (28.0-32.0) Mean Corpuscular Hemoglobin Concent 34.8 g/dL (32.0-36.0) Red Cell Distribution Width 13.3 % (11.8-14.3) Platelet Count 206 10^3/uL (140-450) Mean Platelet Volume 9.8 fL (6.9-10.8) Neutrophils (%) (Auto) 66.4 % (37.0-80.0) Lymphocytes (%) (Auto) 21.8 % (10.0-50.0) Monocytes (%) (Auto) 9.2 % (0.0-12.0) Eosinophils (%) (Auto) 2.1 % (0.0-7.0) Basophils (%) (Auto) 0.5 % (0.0-2.0) Neutrophils # (Auto) 5.4 10 ^3/uL (1.6-8.6) Lymphocytes # (Auto) 1.8 10 ^3/uL (0.4-5.4) Monocytes # (Auto) 0.7 10 ^3/uL (0-1.3) Eosinophils # (Auto) 0.2 10 ^3/uL (0-0.8) Basophils # (Auto) 0 10 ^3/uL (0-0.2) Nucleated Red Blood Cells 0.1 % Prothrombin Time 10.9 sec (9.3-11.8) Prothrombin Time INR 1.03 (0.9-1.15) Activated Partial Thromboplast Time 25.3 SEC (24.5-34.5) Urine Color Light-yellow (Yellow) Urine Clarity Clear (Clear) Urine pH 5.5 (5.0-9.0) Urine Specific [place] 1.023 (1.001-1.035) Urine Protein Negative (Negative) Urine Ketones Negative (Negative) Urine Blood Negative /uL (Negative) Urine Nitrite Negative (Negative) Urine Bilirubin Negative (Negative) Urine Urobilinogen Normal mg/dL (Negative) Urine Leukocyte Esterase Negative /uL (Negative) Urine RBC 1 /hpf (0 - 3) Urine Microscopic WBC 1 /HPF (0-3) Urine Squamous Epithelial Cells None seen /hpf (<5) Urine Bacteria None seen /hpf (None Seen) Urine Mucus Few (None Seen) Urine Glucose Normal mg/dL (Normal) Sodium Level 140 mmol/L (136-145) Potassium Level 4.5 mmol/L (3.5-5.1) Chloride Level 103 mmol/L (98-107) Carbon Dioxide Level 28 mmol/L (20-31) Anion Gap 9 (5-15) Blood Urea Nitrogen 24 mg/dL (9-23) Creatinine 1.10 mg/dL (0.700-1.30) Glomerular Filtration Rate Calc 72 mL/min (>90) BUN/Creatinine Ratio 21.8 (10.0-20.0) Serum Glucose 88 mg/dL (74-106) Calcium Level 9.2 mg/dL (8.7-10.4) Total Bilirubin 0.8 mg/dL (0.2-1.0) Aspartate Amino Transferase (AST) 28 U/L (13-40) Alanine Aminotransferase (ALT) 43 U/L (7-40) Alkaline Phosphatase 117 U/L (46-116) Total Protein 6.5 g/dL (5.7-8.2) Albumin 4.1 g/dL (3.2-4.8) Other Laboratory Tests 07/16/25 06:29 Brief Hx & Hospital Course: The patient arrived for a elective spine surgery with Dr. NEWMAN. Surgery went as planned with no complications. After a short stay in the PACU patient was admitted to the hospital for postoperative care and pain management over the course of 4 postoperative days the patient was able to tolerate a diet, ambulate independently, the pain has been managed with oral analgesics. The surgical site is well-approximated with sutures, some residual drainage continues from drain insertion sites after removal, however it is manageable with daily wound care and dressing changes. Some improvement to preoperative symptoms of extremities, strength and motion. There is new post operative pain that is localized to the surgical site. The patient will follow-up with Dr. Newman for wound check and suture check or staple removal. Continue supportive care, postoperative treatment, pain management and wound dressing Patient may be discharged from a spine surgical perspective Patient will be discharged with galen dressing in place, this will be removed at postop follow-up appointment which should be scheduled by postoperative day 10 Your galen dressing may be carried in your pocket or belt clip what ever is most comfortable for you. Your galen pump contains a small magnet be sure to keep it at least 4 inches or 10 cm away from any other medical devices at all times. As with all electrical medical equipment, failure to maintain appropriate distance may disrupt the operation of nearby medical devices. Sleeping, be sure your galen drain is placed somewhere safe and cannot be pulled off of the table or a cabinet onto the floor during sleeping. Washing and showering, do not soak the dressing or allow the pump to get wet. You may shower with your galen dressing. However do not allow the water to saturate the dressing. The power source must be placed in a Ziploc bag and the opening taped closed to prevent the power source from getting wet No bending lifting or twisting until cleared by your surgeon. Follow-up with Dr. Kat Call for an appointment [phone] [id number] [facility] [address] [place] [id number] Operations or Procedures Procedure: Lumbar 5 laminectomy with Lumbar 5 foraminotomies and facetectomies to decompress central canal and Lumbar 5 nerve roots Lumbar 4 laminectomy with Lumbar 4 foraminotomies and facetectomies to decompress central canal and Lumbar 4 nerve roots Lumbar 3 laminectomy with Lumbar 3 foraminotomies and facetectomies to decompress central canal and Lumbar 3 nerve roots Lumbar 3 to 4 posterior spinal interbody fusion with PEEK cage Lumbar 4 to 5 posterior spinal interbody fusion with PEEK cage Lumbar 3 to 5 posterior spinal intertransverse fusion with bone graft Lumbar 3 to 5 posterior spinal instrumentation with pedicle screws Local Bone Autograft For Fusion Allograft Bone to augment Fusion Condition at Discharge: Good Final Diagnosis/Problems List Postoperative pain, muscle spasms of the lumbar back Discharge Disposition: Home Discharge Instruct/Medications Diet: See Comment Diet comment: May resume your regular diet please avoid any excessive sugars, please make sure you are using a high-fiber diet to help facilitate bowel movements Activity: See Comment Activity comment: As tolerated, please avoid any twisting, bending lifting until cleared by Dr. Kat Ambulate several times during the day at least once an hour. Follow Up/Referral: Call the office to make a new postoperative appointment Call [phone] for a appointment, or to change or confirm your appoinment [id number] [place] [address], [address], [place] [id number] Medications: Soma was sent to your pharmacy for three days worth of medications for muscle spasms. After you complete that prescription you may resume your Flexeril for muscle spasms please do not combine both. New Medications: Carisoprodol (Carisoprodol) 350 Mg Tab 350 MG PO TID for 3 Days, #9 TAB Continued Medications: Ascorbic Acid (Vitamin C Tablet) 500 Mg Tb 2 TAB PO DAILY, #30 TAB Cholecalciferol (D3) 1,000 Unit Tab 1000 UNIT PO, TAB Coenzyme Q10 (Ubidecarenone) (Coq-10) 400 Mg Cap 400 MG OR DAILY, CAP Curcuma Longa (Turmeric) Extra (Turmeric) 500 Mg Cap 1000 MG OR BID, CAP Docusate Sodium (Colace) 100 Mg Cap 1 CAP PO TID, #60 CAP Glucosamine Hydrochloride (Glucosamine) 1,500 Mg Tab 1500 MG PO BID, TAB Ibuprofen (Eql Ibuprofen) 200 Mg Cap 600 MG PO TID PRN for prn, CAP Meloxicam (Meloxicam) 15 Mg Tab 15 MG PO PRN, TAB Multiple Vitamin (Daily Vitamins) Tab 1 OR, TAB [place]-3 Fatty Acids (Fish Oil) 1,000 Mg Cap 1000 MG PO BID, CAP Psyllium (Daily Fiber) 400 Mg Cap 700 MG PO, CAP Rosuvastatin Calcium (Crestor) 20 Mg Tab 1 TAB PO DAILY, #90 TAB 3 Refills Tramadol Hcl (Tramadol Hcl) 50 Mg Tab 50 MG PO TIDP PRN for 7 Days, #21 TAB Zinc Gluconate (Zinc) 50 Mg Tab 50 MG PO, TAB Scheduled Ascorbic Acid (Vitamin C Tablet), 2 TAB PO DAILY, (Reported) Carisoprodol (Carisoprodol), 350 MG PO TID Coenzyme Q10 (Ubidecarenone) (Coq-10), 400 MG OR DAILY, (Reported) Curcuma [place]a (Turmeric) Extra (Turmeric), 1,000 MG OR BID, (Reported) Docusate Sodium (Colace), 1 CAP PO TID, (Reported) Glucosamine Hydrochloride (Glucosamine), 1,500 MG PO BID, (Reported) Meloxicam (Meloxicam), 15 MG PO PRN, (Reported) [place]-3 Fatty Acids (Fish Oil), 1,000 MG PO BID, (Reported) Rosuvastatin Calcium (Crestor), 1 TAB PO DAILY, (Reported) Scheduled PRN Ibuprofen (Eql Ibuprofen), 600 MG PO TID PRN for prn, (Reported) Tramadol Hcl (Tramadol Hcl), 50 MG PO TIDP PRN Miscellaneous Medications Cholecalciferol (D3), 1,000 UNIT PO, (Reported) Multiple Vitamin (Daily Vitamins), 1 OR, (Reported) Psyllium (Daily Fiber), 700 MG PO, (Reported) Zinc Gluconate (Zinc), 50 MG PO, (Reported) 25 Discharge Statement: "Patient was advised to return to the ER or call 911 if any headaches, dizziness, shortness of breath, chest pain, abdominal pain, bleeding, fevers, or worsening of medical condition. Patient was counseled about treatment plan, medications, possible side effects, patientverbalized understanding. All questions were answered to the best of my ability. This discharge took greater then 30 minutes in planning, reviewing documentation, counseling the patient, and discussing with other team members." ASSESSMENT ASSESSMENT Assessment Postoperative pain, muscle spasms of the lumbar back Problems: (1) Acute post-operative pain Assessments: Patient has post op meds already (2) Muscle spasm of back Assessments: Patient has post op meds already LILA CALZADA NP Jul 22, 2025 15:26
[2025-07-22 16:32] VITALS: TEMP 37.8
== END 2025-07-22 17:21 | disposition home health service (06) | DRG 448 ==
LOC: SUR 08:32 → OVERFLOW 13:48 → TELE-WESTW 16:39
PROVIDERS: ADMIT Internal Medicine; ATTEND Internal Medicine
PROC: 01NB0ZZ Release Lumbar Nerve, Open Approach (ICD-10-PCS; 2025-07-18)
PROC: 00NY0ZZ Release Lumbar Spinal Cord, Open Approach (ICD-10-PCS; 2025-07-18)
PROC: 4A11X4G Monitoring of Peripheral Nervous Electrical Activity, Intraoperative, External Approach (ICD-10-PCS; 2025-07-18)
PROC: 0SG10AJ Fusion of 2 or more Lumbar Vertebral Joints with Interbody Fusion Device, Posterior Approach, Anterior Column, Open Approach (ICD-10-PCS; principal; 2025-07-18 09:33)
DX: M48.062 Spinal stenosis, lumbar region with neurogenic claudication (principal); M54.16 Radiculopathy, lumbar region; M62.830 Muscle spasm of back; G89.18 Other acute postprocedural pain; M43.16 Spondylolisthesis, lumbar region; K59.00 Constipation, unspecified; G89.29 Other chronic pain; Z82.49 Family history of ischemic heart disease and other diseases of the circulatory system
CPT/HCPCS: 36415; 72100; 76000; 80053; 81001; 85025; 85610; 85730; 86850; 86900; 86901; 97110; 97116; 97163; 97530; A4344; G0378; J0131; J1100; J1885; J2250; J2405; J2470; J2704

== ENCOUNTER 2025-08-20 06:07 | Outpatient (CLI) | payer OTHER ==
[~2025-08-20 06:07] MED LIST changes: +CARI-579 PO
[2025-08-20 07:13] LABS: Hematocrit 39.1 % (41.0-53.0); Hemoglobin 13.2 g/dL (13.5-17.5); Mean Corpuscular Hemoglobin 31.7 pg (28.0-32.0); Mean Corpuscular Volume 93.8 fL (80.0-100.0); Nucleated Red Blood Cells % 0.1 %
[2025-08-20 08:11] LABS: Alanine Aminotransferase 23 U/L (7-40); Albumin 4.2 g/dL (3.2-4.8); Anion Gap 10 (5-15); BUN/Creatinine Ratio 10.6 (10.0-20.0); Blood Urea Nitrogen 10 mg/dL (9-23); Calcium 9.5 mg/dL (8.7-10.4); Carbon Dioxide 30 mmol/L (20-31); Glucose 97 mg/dL (74-106); Total Protein 6.8 g/dL (5.7-8.2); Triglycerides 51 mg/dL (< 150)
[2025-08-20 08:12] LABS: Bilirubin, Total 0.5 mg/dL (0.2-1.0); Cholesterol 129 mg/dL (< 200); HDL Cholesterol 55 mg/dL (40-59)
[2025-08-20 08:16] LABS: Alkaline Phosphatase 151 U/L (46-116); Chloride 107 mmol/L (98-107); Potassium 5.2 mmol/L (3.5-5.1); Sodium 147 mmol/L (136-145)
[2025-08-20 08:40] LABS: Prostate Specific Antigen 3.57 ng/mL (0.0-4.0)
[2025-08-20 08:44] LABS: Free T4 (Free Thyroxine) 1.14 ng/dL (0.89-1.76)
[2025-08-20 08:50] LABS: Urine Protein, UAD Negative (Negative)
== END 2025-08-20 17:00 | disposition home or self-care (01) ==
LOC: LAB 06:07
PROVIDERS: ATTEND Internal Medicine
DX: N18.2 Chronic kidney disease, stage 2 (mild) (principal); E78.5 Hyperlipidemia, unspecified; Z13.1 Encounter for screening for diabetes mellitus; Z79.899 Other long term (current) drug therapy
CPT/HCPCS: 36415; 80053; 80061; 81001; 82274; 83036; 84153; 84439; 84443; 85025

== ENCOUNTER 2025-08-28 08:13 | Outpatient (CLI) | payer OTHER | END 2025-08-28 17:00 | disposition home or self-care (01) | LOC: LAB 08:13 | PROVIDERS: ATTEND Internal Medicine | DX: R41.89 Other symptoms and signs involving cognitive functions and awareness (principal) | CPT/HCPCS: 36415; 82607; 86780 ==